=== PATIENT | female | born 1980 | race Caucasian/White ===

== ENCOUNTER → 2017-09-27 14:18 | Outpatient (REF) | payer OTHER, SELFPAY ==
[2017-09-27 14:58] LABS: Basophils % 0.2 % (0.1-2.0); Eosinophils # 0.1 K/mm3 (0.0-0.4); Eosinophils % 1.6 % (0.1-12.0); Hematocrit 43.4 % (37.0-47.0); Hemoglobin 14.9 g/dL (12.2-16.2); Lymphocytes # 1.5 K/mm3 (0.7-4.5); Lymphocytes % 21.3 K/mm3 (10-50); Mean Corpuscular HGB Conc 34.4 g/dL (31.8-35.4); Mean Corpuscular Hemoglobin 30.8 pg (27.0-31.2); Mean Corpuscular Volume 89.6 fl (81-99); Mean Platelet Volume 9.3 fl (7.4-10.4); Monocytes # 0.4 K/mm3 (0.1-1.0); Monocytes % 6.1 % (1.7-9.3); Neutrophils # 4.9 K/mm3 (1.8-7.8); Neutrophils % 70.9 % (37.0-80.0); Platelet Count 201 K/mm3 (142-424); Red Blood Count 4.84 M/mm3 (4.20-5.40); Red Cell Distribution Width 12.3 % (11.5-17.5); White Blood Count 6.9 K/mm3 (4.8-10.8)
[2017-09-27 16:05] LABS: Alanine Aminotransferase 33 U/L (12-78); Albumin Level 4.3 gm/dL (3.4-5.0); Albumin/Globulin Ratio 1.3 (1.1-1.8); Alkaline Phosphatase 77 U/L (46-116); Anion Gap 13.1 mEq/L (5-15); Aspartate Amino Transferase 30 U/L (15-37); Bilirubin,Total 0.6 mg/dL (0.2-1.0); Blood Urea Nitrogen 16 mg/dL (7-18); Calcium 9.1 mg/dL (8.5-10.1); Carbon Dioxide 26 mmol/L (21.0-32.0); Chloride 106 mmol/L (98-107); Creatinine,Serum 1.16 mg/dL (0.55-1.02); Estimated Glomerular Filt Rate 53 ml/min (>60); GFR (African American) 64 ML/MIN (>60); Globulin 3.3 gm/dl (1.3-3.2); Glucose 87 mg/dL (74-106); Potassium 4.1 mmoL/L (3.5-5.1); Sodium 141 mmol/L (136-145); Total Protein,Serum 7.6 gm/dL (6.4-8.2)
== END ==
LOC: LAB 14:18
PROVIDERS: Visit Provider Nurse Practitioner Family
DX: T14.8XXA Other injury of unspecified body region, initial encounter (principal); W57.XXXA Bitten or stung by nonvenomous insect and other nonvenomous arthropods, initial encounter
CPT/HCPCS: 80053; 85025; 86618

== ENCOUNTER → 2017-10-02 12:52 | Outpatient (CLI) | payer OTHER, SELFPAY ==
--- NOTE | 2017-10-02 12:55 | CA_ITS ---
PROCEDURE: 2-D M-mode and color Doppler study INDICATIONS FOR THE TEST: Chest pain COPD Heart Murmur Tobacco Smoking Palpitations Fatigue+ Syncope+ Edema Hypertension Diabetes Mellitus Rheumatic Fever SOB SEAY+Obesity Hyperlipidemia Family History HD+ Additional History near syncope, migraines PATIENT INFORMATION HEIGHT: 69 WEIGHT: 179 GENDER: Female B/P: 122/78 2-D/M-MODE INTERPRETATION: 2-D MEASUREMENTS OBSERVED VALUES IN CMS Right Ventricular Dimension (RVDd) 2.0 Interventricular Septum (Thickness)(IVsd) 0.9 Left Ventricular Internal Dimensions(LVIDd) 4.7 Left Ventricular Posterior Wall (Thickness)(LVPWd) 0.8 Aortic Root 2.6 Aortic Cusp Separation 2.1 Left Atrial Dimensions (LAD) 3.8 2D 1. Technically difficult study because of the equipment, image quality is very poorly valvular structures as well as endocardial subsequent poorly visualized. 2. Left atrium is normal size, left ventricle is normal size, there is no concentric left ventricular hypertrophy, visually estimated ejection fraction 55% with no obvious regional wall motion abnormality, endocardial surface of poorly visualized. 3. The right atrium and right ventricle are grossly normal size and function. 4. The aortic valve is poorly visualized. 5. The mitral and tricuspid valvular grossly normal. 6. No significant pericardial effusion noted. DOPPLER INTERROGATION: Doppler interrogation of the aortic, mitral and tricuspid valve reveals presence of mild mitral and tricuspid regurgitation, tricuspid and jet velocity insufficient for calculation of the right ventricular systolic pressure, diastolic parameters are within normal range. CONCLUSION: 1. Technically difficult study as described above 2. Normal left ventricular size, preserved left ventricular systolic function, visually estimated ejection fraction 55% with no obvious regional wall motion abnormality. Diastolic parameters are within normal range. 3. Mild mitral and tricuspid regurgitation 4. No significant pericardial effusion noted
== END ==
PROVIDERS: Family Provider Family Medicine; PCP Physician Assistant; Visit Provider Physician Assistant
DX: G43.009 Migraine without aura, not intractable, without status migrainosus (principal); T67.1XXA Heat syncope, initial encounter
CPT/HCPCS: 93306

== ENCOUNTER → 2017-10-22 14:33 | Outpatient (REF) | payer OTHER, SELFPAY ==
[2017-10-22 17:46] LABS: Basophils % 0.3 % (0.1-2.0); Eosinophils # 0.1 K/mm3 (0.0-0.4); Eosinophils % 1.3 % (0.1-12.0); Hematocrit 44.8 % (37.0-47.0); Hemoglobin 14.8 g/dL (12.2-16.2); Lymphocytes # 1.5 K/mm3 (0.7-4.5); Lymphocytes % 22.6 K/mm3 (10-50); Mean Corpuscular HGB Conc 33.1 g/dL (31.8-35.4); Mean Corpuscular Hemoglobin 29.4 pg (27.0-31.2); Mean Corpuscular Volume 88.7 fl (81-99); Mean Platelet Volume 9.3 fl (7.4-10.4); Monocytes # 0.4 K/mm3 (0.1-1.0); Monocytes % 5.4 % (1.7-9.3); Neutrophils # 4.6 K/mm3 (1.8-7.8); Neutrophils % 70.4 % (37.0-80.0); Platelet Count 215 K/mm3 (142-424); Red Blood Count 5.05 M/mm3 (4.20-5.40); Red Cell Distribution Width 12.4 % (11.5-17.5); White Blood Count 6.5 K/mm3 (4.8-10.8)
[2017-10-22 18:38] LABS: Erythrocyte Sedimentation Rate 14 mm/hr (0-20)
[2017-10-22 21:10] LABS: Alanine Aminotransferase 34 U/L (12-78); Albumin Level 4.4 gm/dL (3.4-5.0); Albumin/Globulin Ratio 1.4 (1.1-1.8); Alkaline Phosphatase 86 U/L (46-116); Anion Gap 12.9 mEq/L (5-15); Aspartate Amino Transferase 22 U/L (15-37); Bilirubin,Total 0.4 mg/dL (0.2-1.0); Blood Urea Nitrogen 13 mg/dL (7-18); Calcium 9.2 mg/dL (8.5-10.1); Carbon Dioxide 28 mmol/L (21.0-32.0); Chloride 104 mmol/L (98-107); Chol/HDL Ratio 4.2 (1-3.5); Cholesterol 146 mg/dL (140-200); Creatinine,Serum 0.94 mg/dL (0.55-1.02); Estimated Glomerular Filt Rate 68 ml/min (>60); GFR (African American) 82 ML/MIN (>60); Globulin 3.1 gm/dl (1.3-3.2); Glucose 71 mg/dL (74-106); HDL Cholesterol 35 mg/dL (29-89); LDL Cholesterol 84 mg/dL (0-130); Potassium 3.9 mmoL/L (3.5-5.1); Sodium 141 mmol/L (136-145); T4 (Thyroxine) 10.1 ug/dl (4.7-13.3); Total Protein,Serum 7.5 gm/dL (6.4-8.2); Triglycerides 137 mg/dL (30-200); VLDL Cholesterol 27 mg/dL (0-40)
[2017-10-22 21:19] LABS: C-Reactive Protein < 0.2 mg/L (0.0-0.9)
[2017-10-24 12:16] LABS: Anti-Jo-1 <0.2 AI (0.0-0.9); Anti-Smith Antibody <0.2 AI (0.0-0.9); Antichromatin Antibodies <0.2 AI (0.0-0.9); Antiscleroderma-70 Antibodies <0.2 AI (0.0-0.9); RNP Antibodies 0.2 AI (0.0-0.9); Sjogren's Anti-SS-A <0.2 AI (0.0-0.9); Sjogren's Anti-SS-B <0.2 AI (0.0-0.9)
[2017-10-24 14:26] LABS: Anti-DNA (DS) Ab Qn 1 IU/mL (0-9); RA Latex Turbid. <10.0 IU/mL (0.0-13.9)
[2017-10-24 14:27] LABS: Anti-Centromere B Antibodies <0.2 AI (0.0-0.9)
[2017-10-26 18:32] LABS: Rocky Mtn Spotted Fever, IgM 0.61 index (0.00-0.89)
== END ==
LOC: LAB 14:33
PROVIDERS: Visit Provider Physician Assistant
DX: M25.50 Pain in unspecified joint (principal)
CPT/HCPCS: 80053; 80061; 84436; 84443; 85025; 85651; 86038; 86140; 86431; 86609; 86617

== ENCOUNTER → 2017-10-24 08:04 | Outpatient (CLI) | payer OTHER, SELFPAY | PROVIDERS: Family Provider Family Medicine; PCP Physician Assistant; Visit Provider Internal Medicine | DX: R07.9 Chest pain, unspecified (principal); K21.9 Gastro-esophageal reflux disease without esophagitis; R68.89 Other general symptoms and signs; G43.909 Migraine, unspecified, not intractable, without status migrainosus | CPT/HCPCS: 93017 ==

== ENCOUNTER 2017-11-07 10:57 | Outpatient (RCR) | payer OTHER, SELFPAY | END 2017-11-07 10:58 | disposition home or self-care (01) | LOC: PT 10:57 | PROVIDERS: Family Provider Family Medicine; PCP Physician Assistant; Visit Provider Orthopaedic Surgery | DX: S83.005A Unspecified dislocation of left patella, initial encounter (principal) ==

== ENCOUNTER → 2017-11-11 14:03 | Outpatient (CLI) | payer OTHER, SELFPAY ==
--- NOTE | 2017-11-11 14:05 | MR_ITS ---
MR knee LT wo con HISTORY: Knee pain and swelling, pain when bending, dislocated patella ITS.REASON: Dislocation of Lt knee ORDERING PHYSICIAN: Gomez Foy MD PATIENT AGE: 37 years Comparison: None TECHNIQUE: Standard multiplanar multiecho sequences are performed without contrast. FINDINGS: The cruciate ligaments, collateral ligaments, patellar tendon, and quadriceps tendon are in fact. No meniscal tear. There is lateral subluxation of the patella by approximately 12 mm. The medial patellofemoral ligament is torn with edema in the region of the medial patellofemoral ligament. There is a moderate sized knee joint effusion. Edema is also present in the prepatellar region. There is mild bone marrow edema of the lateral aspect of the patella and the lateral aspect of the lateral femoral condyle consistent with bone bruise from the lateral patellar dislocation. Trochlear groove is shallow. The ventricular depth is 3 mm. There is trochlear facet asymmetry with the ratio of the medial trochlear facet to the lateral trochlear facet with of 28%. The lateral trochlear inclination is shallow at 4 degrees. 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 Lateral subluxation of the patella with tear of the medial patellofemoral ligament/medial retinaculum with associated knee joint effusion and bone bruise of the lateral femoral condyle and the medial aspect of the patella. 2. Trochlear dysplasia as described above
== END ==
PROVIDERS: Family Provider Family Medicine; PCP Physician Assistant; Visit Provider Orthopaedic Surgery
DX: S83.005A Unspecified dislocation of left patella, initial encounter (principal)
CPT/HCPCS: 73721

== ENCOUNTER → 2018-02-07 09:27 | Outpatient (CLI) | payer OTHER, SELFPAY ==
--- NOTE | 2018-02-07 09:29 | XR_ITS ---
XR foot wt bearing LT 3V HISTORY: ITS.REASON: pain ORDERING PHYSICIAN: Tiff Painting DPM PATIENT AGE: 37 years COMPARISON: None FINDINGS: No fracture or dislocation. No lytic or blastic change. There is normal mineralization.. The joint spaces are well-preserved. No significant degenerative/arthritic changes. No erosive changes evident. IMPRESSION: Negative, no acute finding
--- NOTE | 2018-02-07 09:29 | XR_ITS ---
XR ankle wt bearing LT min 3V HISTORY: ITS.REASON: pain ORDERING PHYSICIAN: Tiff Painting DPM PATIENT AGE: 37 years Comparison: None FINDINGS: No fracture or dislocation. No lytic or blastic change. There is normal mineralization.. The joint spaces are well-preserved. No significant degenerative/arthritic changes. No erosive changes evident. There is mild soft tissue swelling laterally. The talar dome has an unremarkable appearance IMPRESSION: Mild soft tissue swelling laterally otherwise negative
--- NOTE | 2018-02-07 09:29 | XR_ITS ---
XR ankle wt bearing RT min 3V HISTORY: ITS.REASON: pain ORDERING PHYSICIAN: Tiff Painting DPM PATIENT AGE: 37 years Comparison: None FINDINGS: No fracture or dislocation. No lytic or blastic change. There is normal mineralization.. The joint spaces are well-preserved. No significant degenerative/arthritic changes. No erosive changes evident. IMPRESSION: Negative ankle, no acute finding
--- NOTE | 2018-02-07 09:29 | XR_ITS ---
XR foot wt bearing RT 3V HISTORY: ITS.REASON: pain ORDERING PHYSICIAN: Tiff Painting DPM PATIENT AGE: 37 years COMPARISON: None FINDINGS: No fracture or dislocation. No lytic or blastic change. There is normal mineralization.. The joint spaces are well-preserved. No significant degenerative/arthritic changes. No erosive changes evident. There is a small calcaneal spur IMPRESSION: Negative, no acute finding
== END ==
PROVIDERS: PCP Physician Assistant; Visit Provider Podiatrist
DX: M25.579 Pain in unspecified ankle and joints of unspecified foot (principal)
CPT/HCPCS: 73610; 73630

== ENCOUNTER → 2018-02-11 08:13 | Outpatient (CLI) | payer OTHER, SELFPAY ==
[2018-02-11 08:40] LABS: Basophils % 0.3 % (0.1-2.0); Eosinophils # 0.1 K/mm3 (0.0-0.4); Eosinophils % 1.8 % (0.1-12.0); Hematocrit 42.2 % (37.0-47.0); Hemoglobin 14.5 g/dL (12.2-16.2); Lymphocytes # 1.3 K/mm3 (0.7-4.5); Lymphocytes % 21.2 K/mm3 (10-50); Mean Corpuscular HGB Conc 34.4 g/dL (31.8-35.4); Mean Corpuscular Hemoglobin 30.6 pg (27.0-31.2); Mean Corpuscular Volume 88.9 fl (81-99); Mean Platelet Volume 8.5 fl (7.4-10.4); Monocytes # 0.3 K/mm3 (0.1-1.0); Monocytes % 4.8 % (1.7-9.3); Neutrophils # 4.4 K/mm3 (1.8-7.8); Neutrophils % 71.8 % (37.0-80.0); Platelet Count 215 K/mm3 (142-424); Red Blood Count 4.74 M/mm3 (4.20-5.40); Red Cell Distribution Width 12.4 % (11.5-17.5); White Blood Count 6.1 K/mm3 (4.8-10.8)
[2018-02-11 10:08] LABS: Erythrocyte Sedimentation Rate 11 mm/hr (0-20)
[2018-02-11 11:49] LABS: C-Reactive Protein < 0.2 mg/L (0.0-0.9)
== END ==
PROVIDERS: Family Provider Family Medicine; PCP Physician Assistant; Visit Provider Orthopaedic Surgery
DX: B99.9 Unspecified infectious disease (principal); M25.572 Pain in left ankle and joints of left foot; M72.2 Plantar fascial fibromatosis; M19.072 Primary osteoarthritis, left ankle and foot
CPT/HCPCS: 36415; 85025; 85651; 86140

== ENCOUNTER → 2018-02-21 10:04 | Outpatient (CLI) | payer OTHER, SELFPAY ==
--- NOTE | 2018-02-21 10:06 | MR_ITS ---
MR ankle LT wo/w con HISTORY: Posterior left ankle pain, pain when walking ITS.REASON: left ankle pain/ rec by Dr Ellis ORDERING PHYSICIAN: Arie Bales MD PATIENT AGE: 37 years Comparison: 12/27/2017 TECHNIQUE: Standard multiplanar multiecho sequences are performed without and with gadolinium enhancement. The patient did experience hives following gadolinium enhancement. The patient was taken to the radiology department and observed. Antihistamine was not given as the patient was driving herself home. The hives resolved without treatment and the patient left the radiology department in stable condition. FINDINGS: The anterior tibiofibular ligament is not identified consistent with tear. The posterior tibiofibular ligament is intact. The anterior talofibular ligament is identified but is thin with a small amount of fluid in this region. The posterior talofibular ligament is also thin. The fibers of the deltoid ligament are thin but appear intact. These are not well demarcated which may be due to technical factors. Osteoarthritic changes are present involving the anterior talocalcaneal joint with bone marrow edema of the talus and calcaneus at this region which does demonstrate contrast enhancement. The tendons about the ankle appear intact. No acute fracture is evident. The talar dominant has an unremarkable appearance IMPRESSION: 1. 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 2. Suspect tear of the anterior tibiofibular ligament. 3. Sprain versus partial tear of the ATFL and PTFL
== END ==
PROVIDERS: PCP Physician Assistant; Visit Provider Orthopaedic Surgery
DX: M25.572 Pain in left ankle and joints of left foot (principal)
CPT/HCPCS: 73223; A9576

== ENCOUNTER → 2018-03-17 09:20 | Outpatient (CLI) | payer OTHER, SELFPAY ==
[2018-03-17 09:52] LABS: Basophils % 0.4 % (0.1-2.0); Eosinophils # 0.1 K/mm3 (0.0-0.4); Eosinophils % 1.4 % (0.1-12.0); Hematocrit 41.2 % (37.0-47.0); Hemoglobin 14.1 g/dL (12.2-16.2); Lymphocytes # 1.4 K/mm3 (0.7-4.5); Lymphocytes % 26.9 K/mm3 (10-50); Mean Corpuscular HGB Conc 34.3 g/dL (31.8-35.4); Mean Corpuscular Hemoglobin 30.5 pg (27.0-31.2); Mean Corpuscular Volume 88.9 fl (81-99); Mean Platelet Volume 8.6 fl (7.4-10.4); Monocytes # 0.3 K/mm3 (0.1-1.0); Monocytes % 4.8 % (1.7-9.3); Neutrophils # 3.5 K/mm3 (1.8-7.8); Neutrophils % 66.5 % (37.0-80.0); Platelet Count 201 K/mm3 (142-424); Red Blood Count 4.63 M/mm3 (4.20-5.40); Red Cell Distribution Width 12.5 % (11.5-17.5); White Blood Count 5.3 K/mm3 (4.8-10.8)
[2018-03-17 10:41] LABS: Alanine Aminotransferase 37 U/L (12-78); Albumin/Globulin Ratio 1.3 (1.1-1.8); Alkaline Phosphatase 82 U/L (46-116); Anion Gap 9.2 mEq/L (5-15); Aspartate Amino Transferase 17 U/L (15-37); Bilirubin,Total 0.8 mg/dL (0.2-1.0); Blood Urea Nitrogen 11 mg/dL (7-18); Calcium 8.7 mg/dL (8.5-10.1); Carbon Dioxide 29 mmol/L (21.0-32.0); Chloride 104 mmol/L (98-107); Chol/HDL Ratio 3.9 (1-3.5); Cholesterol 153 mg/dL (140-200); Creatinine,Serum 0.66 mg/dL (0.55-1.02); Estimated Glomerular Filt Rate 102 ml/min (>60); GFR (African American) 123 ML/MIN (>60); Globulin 3.1 gm/dl (1.3-3.2); Glucose 84 mg/dL (74-106); HDL Cholesterol 39 mg/dL (29-89); LDL Cholesterol 99 mg/dL (0-130); Potassium 4.2 mmoL/L (3.5-5.1); Sodium 138 mmol/L (136-145); Thyroid Stimulating Hormone 1.37 uIU/ml (0.358-3.740); Total Protein,Serum 7.1 gm/dL (6.4-8.2); Triglycerides 75 mg/dL (30-200); VLDL Cholesterol 15 mg/dL (0-40)
[2018-03-18 15:56] LABS: Vitamin B12 380 pg/mL (232-1245); Vitamin D 25 Hydroxy 14.7 ng/mL (30.0-100.0)
== END ==
PROVIDERS: PCP Nurse Practitioner Family; Visit Provider Nurse Practitioner Family
DX: Z00.00 Encounter for general adult medical examination without abnormal findings (principal); R53.83 Other fatigue
CPT/HCPCS: 36415; 80053; 80061; 82607; 82652; 84443; 85025

== ENCOUNTER 2018-03-19 08:00 | Outpatient (RCR) | payer OTHER, SELFPAY ==
--- NOTE | 2018-01-31 10:01 | HMH.RHREAS ---
Rehab Reassessment Rehab OP Re-assessment Start: 01/31/18 07:57 Freq: Status: Active Protocol: Document 01/31/18 07:59 ANIYAH (Rec: 01/31/18 08:29 ANIYAH [id number]) Electronically Signed By Alonso Dickerson, PT 01/31/18 07:59 Rehab Re-assessment Subjective Subjective PT REPORTS 2-5/10 L KNEE PAIN W/ACTIVITY ON VAS, AND FEELS 70-75% BETTER SINCE I EVAL Objective Objective Notes AROM: L KNEE FLX 0-122 TTP: L KNEE MEDIAL JT LINE 2/4 MMT: L KNEE FLX 4+/5, L KNEE EXT 4+/5, L HIP FLX 4-4+/5, L HIP IR AND ER 4/5 CIRCUM. L KNEE 36CM AT JT LINE Assessment Progress Assessment Progressing as Expected Assessment Notes PT W/IMPROVED ROM, STRENTGH, TTP, SWELLING Patient goals met STG'S 11/30 LTG'S Goals Not Met LTG'S 11/04 Plan Plan Pt to cont. w/skilled PT to make further improvements in strength, TTP, and gait to allow for optimal function Frequency of Therapy 1-2x/wk Duration of therapy 3-4wks Time and Billing Re-Eval Time 15 Re-Eval Billing Units 1 PHYSICIAN CERTIFICATION: I certify the specified therapy services for Capri Hickman are required, authorized, and reviewed every 30 days.
--- NOTE | 2018-03-12 08:28 | HMH.RHREAS ---
Rehab Reassessment Rehab OP Re-assessment Start: 01/31/18 07:57 Freq: Status: Active Protocol: Document 03/12/18 08:24 JIAHAO (Rec: 03/12/18 08:27 JIAHAO [id number]) Electronically Signed By Alonso Dickerson, PT 03/12/18 08:24 Rehab Re-assessment Subjective Subjective PT REPORT 4-5/10 L KNEE PAIN AND 8/10 L ANKLE (MEDIAL) PAIN ON VAS Objective Objective Notes AROM: L KNEE FLX 0-125 TTP: L KNEE MEDIAL JT LINE 2/4 MMT: L KNEE FLX 4+/5, L KNEE EXT 4+/5, L HIP FLX 4-4+/5, L HIP IR AND ER 4/5 CIRCUM. L KNEE 37CM AT JT LINE AROM: L ANKLE DF 0-8, PF 0-35, EVR 0-10, INV 0-20 (PAIN W/ INVR AND EVR) MMT L ANKLE DF 4-/5, PF 4-/5, INV 4-/5, EVR 4-/5 TTP: L ANKLE MEDIAL ASPECT/ DELTOID LIG AREA 3/4 Assessment Progress Assessment Slower Than Expected Assessment Notes L KNEE CLOSE TO WFL, HOWEVER, L ANKLE STILL HAS SIGNIFICANT DEFICITS-PT TO SEE ORTHO 03/25 Patient goals met STG'S 11/30 LTG'S 10/04 Goals Not Met LTG'S 11/04 Plan Plan Pt to cont. w/skilled PT to make further improvements in strength, TTP, and gait to allow for optimal function Frequency of Therapy 2-3/WK Duration of therapy 3-4 WKS Time and Billing Re-Eval Time 15 Re-Eval Billing Units 1 PHYSICIAN CERTIFICATION: I certify the specified therapy services for Capri Hickman are required, authorized, and reviewed every 30 days.
== END 2018-03-19 08:01 | disposition home or self-care (01) ==
LOC: PT 08:00
PROVIDERS: Family Provider Family Medicine; PCP Physician Assistant; Visit Provider Orthopaedic Surgery
DX: S86.812A Strain of other muscle(s) and tendon(s) at lower leg level, left leg, initial encounter (principal); M72.2 Plantar fascial fibromatosis
CPT/HCPCS: 97010; 97014; 97033; 97035; 97110; 97140; 97163; 97164; 97760; G0283

== ENCOUNTER → 2018-04-11 08:13 | Outpatient (CLI) | payer OTHER, SELFPAY ==
--- NOTE | 2018-04-11 08:14 | CT_ITS ---
CT ankle LT wo con INDICATION: Left ankle pain following injury ITS.REASON: pain ORDERING PHYSICIAN: Tiff Painting DPM PATIENT AGE: 37 years COMPARISON: 02/21/2018 TECHNIQUE: Axial images are obtained without contrast. Sagittal and coronal reformatted images are reviewed as well. All CT scans at the facility use one or more dose reduction, viz: automated exposure control, ma/kV adjustment per patient size (including targeted exams where dose is matched to indication, i.e. head), or iterative reconstruction technique. FINDINGS: No fracture or dislocation. There is normal alignment. The talar dome has an unremarkable appearance.. There is some minimal cortical irregularity involving the middle talar articular surface and adjoining calcaneus/sustentaculum talus which would correspond to the area of sclerosis noted on MRI of 02/21/2018. No abnormal fluid collections. No evidence of stress fracture. IMPRESSION: 1. No acute fracture. 2. Mild sclerosis of the middle subtalar joint suggesting mild osteoarthritic changes. Previously this was called to the anterior subtalar joint on the MRI of 02/21/2018 but is actually the middle subtalar articulation.
== END ==
PROVIDERS: PCP Podiatrist; Visit Provider Podiatrist
DX: D75.89 Other specified diseases of blood and blood-forming organs (principal); M25.572 Pain in left ankle and joints of left foot; S93.492A Sprain of other ligament of left ankle, initial encounter
CPT/HCPCS: 73700

== ENCOUNTER → 2018-06-05 09:50 | Outpatient (CLI) | payer OTHER, SELFPAY ==
--- NOTE | 2018-06-05 09:51 | XR_ITS ---
XR foot wt bearing RT 3V HISTORY: ITS.REASON: pain ORDERING PHYSICIAN: Tiff Painting DPM PATIENT AGE: 38 years COMPARISON: None FINDINGS: No fracture or dislocation. No lytic or blastic change. There is normal mineralization.. The joint spaces are well-preserved. No significant degenerative/arthritic changes. No erosive changes evident. IMPRESSION: Negative, no acute finding
--- NOTE | 2018-06-05 09:51 | XR_ITS ---
XR foot wt bearing LT 3V HISTORY: ITS.REASON: pain ORDERING PHYSICIAN: Tiff Painting DPM PATIENT AGE: 38 years COMPARISON: None FINDINGS: No fracture or dislocation. No lytic or blastic change. There is normal mineralization.. The joint spaces are well-preserved. No significant degenerative/arthritic changes. No erosive changes evident. IMPRESSION: Negative, no acute finding
== END ==
PROVIDERS: PCP Nurse Practitioner Family; Visit Provider Podiatrist
DX: M79.671 Pain in right foot (principal)
CPT/HCPCS: 73630

== ENCOUNTER → 2018-08-14 09:53 | Outpatient (CLI) | payer OTHER, SELFPAY ==
[2018-08-14 10:15] LABS: Basophils % 0.2 % (0.1-2.0); Eosinophils # 0.1 K/mm3 (0.0-0.4); Eosinophils % 1.1 % (0.1-12.0); Hematocrit 42.8 % (37.0-47.0); Hemoglobin 14.4 g/dL (12.2-16.2); Lymphocytes # 1.5 K/mm3 (0.7-4.5); Mean Corpuscular HGB Conc 33.7 g/dL (31.8-35.4); Mean Corpuscular Hemoglobin 30.5 pg (27.0-31.2); Mean Corpuscular Volume 90.6 fl (81-99); Mean Platelet Volume 8.6 fl (7.4-10.4); Monocytes # 0.3 K/mm3 (0.1-1.0); Monocytes % 5.6 % (1.7-9.3); Neutrophils % 68.1 % (37.0-80.0); Platelet Count 213 K/mm3 (142-424); Red Blood Count 4.72 M/mm3 (4.20-5.40); Red Cell Distribution Width 12.7 % (11.5-17.5); White Blood Count 5.9 K/mm3 (4.8-10.8)
[2018-08-14 10:22] LABS: Activated Partial Thrombo Time 25.8 seconds (23.6-34.0); INR 0.99 (0.9-1.1); Prothrombin Time 10.2 seconds (9.4-11.8)
[2018-08-14 11:24] LABS: Alanine Aminotransferase 64 U/L (12-78); Albumin Level 4.3 gm/dL (3.4-5.0); Albumin/Globulin Ratio 1.4 (1.1-1.8); Alkaline Phosphatase 109 U/L (46-116); Anion Gap 12.2 mEq/L (5-15); Aspartate Amino Transferase 36 U/L (15-37); Bilirubin,Total 0.6 mg/dL (0.2-1.0); Blood Urea Nitrogen 8 mg/dL (7-18); Calcium 9.2 mg/dL (8.5-10.1); Carbon Dioxide 29 mmol/L (21.0-32.0); Chloride 105 mmol/L (98-107); Creatinine,Serum 0.64 mg/dL (0.55-1.02); Estimated Glomerular Filt Rate 105 ml/min (>60); GFR (African American) 127 ML/MIN (>60); Glucose 87 mg/dL (74-106); Potassium 4.2 mmoL/L (3.5-5.1); Sodium 142 mmol/L (136-145); Total Protein,Serum 7.3 gm/dL (6.4-8.2)
[2018-08-15 08:54] LABS: Vitamin D 25 Hydroxy 9.7 ng/mL (30.0-100.0)
== END ==
PROVIDERS: Visit Provider Nurse Practitioner Family
DX: Z01.818 Encounter for other preprocedural examination (principal); S93.492S Sprain of other ligament of left ankle, sequela; S93.422D Sprain of deltoid ligament of left ankle, subsequent encounter; G57.62 Lesion of plantar nerve, left lower limb; M25.372 Other instability, left ankle
CPT/HCPCS: 36415; 80053; 82652; 85025; 85610; 85730

== ENCOUNTER → 2018-08-26 10:07 | Outpatient (CLI) | payer OTHER, SELFPAY ==
--- NOTE | 2018-08-26 10:12 | XR_ITS ---
XR chest 2V HISTORY: ITS.REASON: PRE-OP ORDERING PHYSICIAN: Tiff Painting DPM PATIENT AGE: 38 years COMPARISON: PA and lateral chest 02/22/2012 FINDINGS: The cardiomediastinal silhouette and pulmonary vascularity are within normal limits. The lungs are clear without infiltrates, suspicious nodules, or pleural effusions. No acute bony abnormalities. There are small calcified hilar nodes bilaterally. IMPRESSION: Negative chest, no acute finding
== END ==
PROVIDERS: PCP Nurse Practitioner Family; Visit Provider Podiatrist
DX: Z01.818 Encounter for other preprocedural examination (principal); M25.572 Pain in left ankle and joints of left foot; M25.372 Other instability, left ankle; M19.172 Post-traumatic osteoarthritis, left ankle and foot; G57.62 Lesion of plantar nerve, left lower limb
CPT/HCPCS: 71046

== ENCOUNTER → 2018-09-09 07:55 | Outpatient (CLI) | payer OTHER, SELFPAY ==
--- NOTE | 2018-09-09 07:59 | XR_ITS ---
XR foot wt bearing LT 3V HISTORY: Follow-up ITS.REASON: post-op ORDERING PHYSICIAN: Tiff Painting DPM PATIENT AGE: 38 years COMPARISON: Talocalcaneal fusion 08/27/2018 FINDINGS: Study is obtained through a posterior splint. There remains good alignment without evidence of complication status post talocalcaneal arthrodesis and distal tib-fib fixation. IMPRESSION: No change, good alignment
--- NOTE | 2018-09-09 07:59 | XR_ITS ---
XR calcaneus LT min 2V CLINICAL INDICATION: Follow-up fusion/arthrodesis ITS.REASON: post-op ORDERING PHYSICIAN: Tiff Painting DPM PATIENT AGE: 38 years Comparison: 08/27/2018 FINDINGS: Status post arthrodesis of the posterior talocalcaneal joint with 2 screws present previously described unchanged with good alignment posterior splint is present. IMPRESSION: Status post posterior talocalcaneal arthrodesis with good alignment unchanged
== END ==
PROVIDERS: PCP Internal Medicine Adolescent Medicine; Visit Provider Podiatrist
DX: Z98.890 Other specified postprocedural states (principal)
CPT/HCPCS: 73630; 73650; 87070; 87205

== ENCOUNTER → 2018-09-09 18:36 | Outpatient (CLI) | payer OTHER, SELFPAY | PROVIDERS: Visit Provider Podiatrist | DX: Z98.890 Other specified postprocedural states (principal) | CPT/HCPCS: 87070; 87205 ==

== ENCOUNTER → 2018-10-06 14:01 | Outpatient (CLI) | payer OTHER, SELFPAY ==
--- NOTE | 2018-10-06 14:05 | XR_ITS ---
XR foot wt bearing LT 3V HISTORY: Follow-up surgery ITS.REASON: postop views ORDERING PHYSICIAN: Tiff Painting DPM PATIENT AGE: 38 years COMPARISON: 09/09/2018 FINDINGS: The splint has been removed. No change status post talocalcaneal arthrodesis. No change in the screws in the talus and calcaneus. There remains good alignment. IMPRESSION: Good alignment status post talocalcaneal arthrodesis
== END ==
PROVIDERS: PCP Internal Medicine Adolescent Medicine; Visit Provider Podiatrist
DX: Z98.890 Other specified postprocedural states (principal)
CPT/HCPCS: 73630

== ENCOUNTER 2018-11-24 14:30 | Outpatient (RCR) | payer OTHER, SELFPAY ==
--- NOTE | 2018-10-21 08:46 | HMH.PTOPEV ---
PT Outpatient Evaluation Rehab PT Outpatient Evaluation Start: 10/21/18 08:38 Freq: Status: Active Protocol: Document 10/21/18 08:39 ANIYAH (Rec: 10/21/18 08:46 ANIYAH [id number]) Electronically Signed By Alonso Dickerson, PT 10/21/18 08:39 Outpatient Therapy Subjective History Subjective History Pt presents s/p L ankle fusion sx. on 09/06/18. Pt reports sx . was a success, 'I wish I had done it earlier, I have no pain, and feels so much better '. Pt reports no L ankle pain or soreness, only a small area where sx. incision is healing slow, and stiffness and weakness in joint. Chief Complaint Stiff,Weakness Symptom Type Numbness,Tingling Symptoms Relieved By Rest/Positioning Symptoms Aggravated By Standing,Walking Prior Functional Limitations Standing,Walking Current Functional Limitations Housework,Standing,Walking, Stairs,Balance Symptom Description Intermittent Level of pain today (0-10) 0 Pain scale - at its best (0-10) 0 Pain scale - at its worst (0-10) 0 Ankle/Foot Eval Gait Observation General Gait Pattern Observation Antalgic Gait,Decrease Weight Bear (L) Assistive Device Ambulation Assistive Device Axillary Crutches Palpation Tenderness left Ankle/Foot Palpation Findings Muscle Guarding Ankle/Foot Palpation Overall Comment 0-1/4 global ROM Ankle/Foot Dorsiflexion w/Knee Extended 0-10 Active Range Motion (degrees) Ankle/Foot Plantar Flexion Active Range 0-5 of Motion (degrees) Ankle/Foot Eversion Active Range of 0-5 Motion (degrees) Ankle/Foot Inversion Active Range of 0-20 Motion (degrees) Ankle/Foot ROM Limitations Soft Tissue Tightness,Bony Restriction MMT Ankle Dorsiflexion Strength Grade 4 Good Ankle Plantarflexion Strength Grade 4- Good- Foot Eversion Strength Grade 4- Good- Foot Inversion Strength Grade 4- Good- Outpatient Therapy Assessment Impairments Problems/Impairmments Palpation Tenderness,Impaired Range of Motion,Impaired Strength,Impaired Gait Pattern ,Impaired Walking,Impaired Standing,Impaired Household Care,Impaired Stair Climbing, Subjective C/O Pain,Impaired Self Care/Self Management Prognosis Rehab Potential Good Clinical Impr
== END 2018-11-24 14:35 | disposition home or self-care (01) ==
LOC: PT 14:30
PROVIDERS: Visit Provider Podiatrist
DX: Z98.890 Other specified postprocedural states (principal); M79.672 Pain in left foot
CPT/HCPCS: 97010; 97014; 97110; 97163; G0283

== ENCOUNTER → 2018-12-02 07:38 | Outpatient (CLI) | payer OTHER, SELFPAY ==
--- NOTE | 2018-12-02 07:40 | MR_ITS ---
MR knee LT wo con HISTORY: Left knee pain, locking while walking ITS.REASON: evaluate for meniscus tear ORDERING PHYSICIAN: Arie Bales MD PATIENT AGE: 38 years Comparison: 11/11/2017 TECHNIQUE: Standard multiplanar multiecho sequences are performed without contrast. FINDINGS: Cruciate ligaments, collateral ligaments, patellar tendon, and quadriceps tendon appear intact. Lateral meniscus and the anterior horn of the medial meniscus has an unremarkable appearance. There is some deformity of the posterior aspect of the posterior horn of the medial meniscus along its medial margin with the appearance of part of that meniscus missing suggesting a meniscal tear or maceration. Previously noted lateral subluxation of the patella has improved. There does remain some discontinuity, thinning and irregularity of the medial aspect of the medial patellofemoral ligament consistent with tear of the medial patellofemoral ligament. There is a small knee joint effusion. There is bone marrow edema involving the medial aspect of the proximal tibia posteriorly suggesting a bone bruise. IMPRESSION: 1. Bone bruise of the proximal tibia medially 2. There is some deformity of the posterior aspect of the posterior horn of the medial meniscus along its medial margin with the appearance of part of that meniscus missing suggesting a meniscal tear or maceration. 3. 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
== END ==
PROVIDERS: PCP Nurse Practitioner Family; Visit Provider Orthopaedic Surgery
DX: M25.562 Pain in left knee (principal)
CPT/HCPCS: 73721

== ENCOUNTER → 2018-12-12 08:46 | Outpatient (CLI) | payer OTHER, SELFPAY ==
[2018-12-12 10:12] LABS: Basophils % 0.5 % (0.1-2.0); Eosinophils # 0.1 K/mm3 (0.0-0.4); Eosinophils % 1.1 % (0.1-12.0); Hematocrit 39.5 % (37.0-47.0); Hemoglobin 13.1 g/dL (12.2-16.2); Lymphocytes # 1.2 K/mm3 (0.7-4.5); Lymphocytes % 26.5 % (10-50); Mean Corpuscular HGB Conc 33.1 g/dL (31.8-35.4); Mean Corpuscular Hemoglobin 28.6 pg (27.0-31.2); Mean Corpuscular Volume 86.6 fl (81-99); Mean Platelet Volume 8.1 fl (7.4-10.4); Monocytes # 0.3 K/mm3 (0.1-1.0); Monocytes % 6.5 % (1.7-9.3); Neutrophils % 65.4 % (37.0-80.0); Platelet Count 231 K/mm3 (142-424); Red Blood Count 4.56 M/mm3 (4.20-5.40); Red Cell Distribution Width 12.2 % (11.5-17.5); White Blood Count 4.6 K/mm3 (4.8-10.8)
[2018-12-12 11:12] LABS: Anion Gap 10.1 mEq/L (5-15); Blood Urea Nitrogen 10 mg/dL (7-18); Calcium 8.9 mg/dL (8.5-10.1); Carbon Dioxide 28 mmol/L (21.0-32.0); Chloride 106 mmol/L (98-107); Estimated Glomerular Filt Rate 95 ml/min (>60); GFR (African American) 115 ML/MIN (>60); Glucose 86 mg/dL (74-106); HCG,Quantitative 0 mIU/mL; Potassium 4.1 mmoL/L (3.5-5.1); Sodium 140 mmol/L (136-145)
== END ==
PROVIDERS: Visit Provider Orthopaedic Surgery
DX: Z01.818 Encounter for other preprocedural examination (principal); S83.242D Other tear of medial meniscus, current injury, left knee, subsequent encounter
CPT/HCPCS: 36415; 80048; 84702; 85025

== ENCOUNTER 2019-02-12 08:30 | Outpatient (RCR) | payer OTHER, SELFPAY ==
--- NOTE | 2019-01-12 09:51 | HMH.PTOPEV ---
PT Outpatient Evaluation Rehab PT Outpatient Evaluation Start: 01/12/19 07:59 Freq: Status: Active Protocol: Document 01/12/19 08:19 ANIYAH (Rec: 01/12/19 09:51 ANIYAH [id number]) Electronically Signed By Alonso Dickerson, PT 01/12/19 08:19 Outpatient Therapy Subjective History Subjective History Pt presents s/p L knee scope w /subchondroplasty, MPFL tear on 12/19/18. Pt reports initial injury occurred during training session w/[employer] on 11/04/17. Pt reports L knee has shown progression in function since sx., however, still reports anterior L knee pain, weakness , and stiffness. Follow-up Chief Complaint Pain,Stiff,Weakness Symptom Type Ache,Dull Symptoms Relieved By Rest/Positioning,Ice Symptoms Aggravated By Standing,Walking Prior Functional Limitations Standing,Squatting,Walking, Stairs Current Functional Limitations Standing,Squatting,Walking, Stairs Symptom Description Constant but Variable Level of pain today (0-10) 3 Pain scale - at its best (0-10) 2 Pain scale - at its worst (0-10) 6 Hip/Knee Eval Gait Observation General Gait Pattern Observation Antalgic Gait Assistive Device Assistive Devices None / NA Palpation Tenderness left Knee Palpation Finding Tenderness Knee Palpation Overall Comment 1-2/4-anterior jt line MMT right Hip Flexion Strength Grade 5 Normal Hip Abduction Strength Grade 4 Good Hip Adduction Strength Grade 4 Good Hip Extension Strength Grade 4 Good Hip External Rotation Strength Grade 4 Good Hip Internal Rotation Strength Grade 5 Normal Knee Extension Strength Grade 5 Normal Knee Flexion Strength Grade 5 Normal left Hip Flexion Strength Grade 4 Good Hip Abduction Strength Grade 4- Good- Hip Adduction Strength Grade 4- Good- Hip Extension Strength Grade 4- Good- Hip External Rotation Strength Grade 4- Good- Hip Internal Rotation Strength Grade 4- Good- Knee Extension Strength Grade 4 Good Knee Flexion Strength Grade 4 Good ROM right Knee Flexion Active Range of Motion ( 0-135 degrees) left Knee Flexion Active Range of Motion ( 0-118 degrees) Knee ROM Limitations Soft Tissue Tightness Effusion joint effusion knee exam standard left Mid - Patellar Circumerential Measure ( 38.5 cm)
--- NOTE | 2019-02-10 08:21 | HMH.RHREAS ---
Rehab Reassessment Rehab OP Re-assessment Start: 02/10/19 08:03 Freq: Status: Active Protocol: Document 02/10/19 08:04 JIAHAO (Rec: 02/10/19 08:21 ANIYAH [id number]) Electronically Signed By Alonso Dickerson, PT 02/10/19 08:04 Rehab Re-assessment Subjective Subjective PT REPORTS 0-2/10 L KNEE PAIN ON VAS AND FEELS 75% BETTER OVERALL SINCE I EVAL Objective Objective Notes AROM: 2-135 L KNEE FLX, PROM 0 -140 MMT: L KNEE FLX 4+/5, KNEE EXT 5/5, L HIP FLX 5/5, L HIP ABD /ADD/EXT 4/5 TTP: L KNEE ANT JT LINE 1-2/4 EDEMA: L KNEE JT LINE 39CM Assessment Progress Assessment Progressing as Expected Assessment Notes PT W/IMPROVED STRENGTH, ROM, AND TTP Patient goals met STG'S 10/31 LTG'S 07/07 Goals Not Met STG'S 06/02, LTG'S 02/04 Plan Plan PT TO CONT. W/SKILLED P.T. TO MAKE FURTHER IMPROVEMENTS IN AROM, STRENGTH, AND TTP TO ALLOW FOR OPTIMAL FUNCTION Frequency of Therapy 2-3X/WK Duration of therapy 3-4WKS Time and Billing Re-Eval Time 15 Re-Eval Billing Units 1 PHYSICIAN CERTIFICATION: I certify the specified therapy services for Capri Hickman are required, authorized, and reviewed every 30 days.
== END 2019-02-12 08:35 | disposition home or self-care (01) ==
LOC: PT 08:30
PROVIDERS: Visit Provider Orthopaedic Surgery
DX: Z09 Encounter for follow-up examination after completed treatment for conditions other than malignant neoplasm (principal); S83.242D Other tear of medial meniscus, current injury, left knee, subsequent encounter
CPT/HCPCS: 97010; 97014; 97016; 97110; 97163; 97164; G0283

== ENCOUNTER 2020-01-22 13:26 | Emergency (ER) | payer OTHER, SELFPAY ==
[2020-01-22 13:49] VITALS: BP 114/80; PULSE 76; RESP 20; TEMP 36.8; O2SAT 99; BMI 26.6
--- NOTE | 2020-01-22 14:03 | HMH.EDUTC ---
[facility] [place] Disposition Clinical Impression: UTI (urinary tract infection) Qualifiers: Urinary tract infection type: site unspecified Hematuria presence: with hematuria Qualified Code(s): N39.0 - Urinary tract infection, site not specified Disposition: Home, Self-Care Condition on Discharge: Good Instructions: Urinary Tract Infection Additional Instructions: Drink plenty of fluids. Take tylenol or ibuprofen for pain or fever. Take the medications as directed. Follow up with your regular doctor. GO TO THE ER FOR ANY WORSENING SYMPTOMS The pyridium will make your urine turn orange, this is an expected side effect. It will stain your clothes if it comes into contact with them. Prescriptions: Sulfamethoxazole/Trimethoprim [Bactrim DS tablet] 1 each PO BID 7 Days #14 tab Transmission Status: Received by [facility] Phenazopyridine HCl [Pyridium 200mg Tablet] 200 pow PO TID #6 tab Transmission Status: Received by [facility] Referrals: Moncho Talley MD [Primary Care Provider] - Time of Disposition: 14:05 Medical Decision Making - Medical Records Medical records reviewed: No: I reviewed the patient's medical records. - Nael Inquiry Pt receiving controlled substance: No Vital Signs: 01/22/20 13:49 01/22/20 14:14 Temperature 98.3 F 98.3 F Temperature Source Oral Pulse Rate 76 Pulse Rate [Right Brachial] 76 Respiratory Rate 20 20 Blood Pressure 114/80 Blood Pressure [Right Arm] 114/80 Blood Pressure Mean [Right Arm] 91 Blood Pressure Source [Right Arm] Automatic Cuff Blood Pressure Position [Right Arm] Sitting 02 Sat by Pulse Oximetry 99 Oxygen Delivery Method Room Air - Lab Data Lab results reviewed: Yes: I reviewed the patient's lab results. Lab Results 01/22/20 14:17: Urine Color Yellow, Urine Appearance Slightly cloudy, Urine pH 5.5, Ur Specific [place] 1.010, Urine Protein Negative, Urine Glucose (UA) Negative, Urine Ketones Negative, Urine Blood 4+, Urine Nitrate Negative, Urine Bilirubin Negative, Urine Urobilinogen 0.2, Ur Leukocyte Esterase Negative [facility] [place] HPI - General Stated complaint: kidney pain Time Seen by Provider: 01/22/20 13:50 Mode of Arrival: Ambulatory Source of Information: Patient Limitations: No Limitations Description of Symptoms (Recalled from Triage Doc. by RN): PATIENT C/O BILATERAL FLANK PAIN SINCE YESTERDAY. DENIES ANY OTHER SYMPTOMS HEENT Symptoms (Recalled from RN notes): No Resp Symptoms (Recalled from RN notes): No Skin Symptoms (Recalled from RN notes): No MS Symptoms (Recalled from RN notes): No Functional Status (Recalled from RN notes): WNL - History of Present Illness Provider Complaint: She c/o low back pain and bilateral flank pain since yesterday. She has been voiding more than normal, but she started drinking lots of water as soon as her back started hurting. She denies any dysuria. - Related Data Previous Rx's Medication Instructions Recorded Cefdinir [Omnicef 300mg Capsule] 300 mg PO BID #20 cap 07/23/19 Fluticasone Propionate [Flonase 1 spr NS DAILY #1 bottle 07/23/19 50mcg nasal spray 16gm] methylPREDNISolone [Medrol 4mg 4 mg PO DIRECTED #21 tab 07/23/19 tab] Phenazopyridine HCl [Pyridium 200 pow PO TID #6 tab 01/22/20 200mg Tablet] Sulfamethoxazole/Trimethoprim 1 each PO BID 7 Days #14 tab 01/22/20 [Bactrim DS tablet] Allergies Allergy/AdvReac Type Severity Reaction Status Date / Time Penicillins [PENICILLINS] Allergy Unknown Hives Verified 06/29/19 08:09 Iodinated Contrast Media AdvReac Verified 06/29/19 08:09 [Iodinated Contrast Media - Oral and] - Worker's Comp Is this a Worker's Comp case?: No [facility] History - Hepatitis A Screen Drug use history?: No High risk sexual behaviors?: No History of sexually transmitted infection?: No Currently employed?: No Childcare worker?: No Do you have indoor plumbing?: Yes Do you have electricity?: Yes Attestat
[2020-01-22 14:14] VITALS: BP 114/80; PULSE 76; RESP 20; TEMP 36.8; O2SAT 99
[2020-01-22 14:18] LABS: Apearance,Urine Slightly Cloudy (Clear); Color,Urine Yellow (Yellow); PH,Urine 5.5 (5.0-8.5)
[2020-01-22 14:19] LABS: Bilirubin,Urine Negative (Negative); Blood, Urine 4+ (Negative); Glucose,Urine (UA) Negative (Negative); Ketones,Urine Negative (Negative); Protein,Urine Negative (Negative); UTC Leukocyte Esterase,Urine Negative (Negative); UTC Nitrate,Urine Negative (Negative); Urobilinogen,Urine 0.2 EU/dl (0.2)
== END 2020-01-22 14:20 | disposition home or self-care (01) ==
PROVIDERS: Emergency Provider Nurse Practitioner Family; PCP Internal Medicine Adolescent Medicine
DX: N30.00 Acute cystitis without hematuria (principal); K21.9 Gastro-esophageal reflux disease without esophagitis; G43.709 Chronic migraine without aura, not intractable, without status migrainosus; Z90.49 Acquired absence of other specified parts of digestive tract; Z88.0 Allergy status to penicillin
CPT/HCPCS: 81003; 99201

== ENCOUNTER → 2020-03-21 13:52 | Outpatient (CLI) | payer OTHER, SELFPAY ==
--- NOTE | 2020-03-21 13:59 | XR_ITS ---
PROCEDURE: XR ANKLE WT BEARING LT MIN 3V CLINICAL INDICATION: Pain Pain COMPARISON: CR [id number] XR ankle LT min 3V from 12/27/2017 CR [id number] XR ankle wt bearing LT min 3V from 02/07/2018 CR [id number] XR foot wt bearing LT 3V from 06/05/2018 CR CALLMLT XR calcaneus LT min 2V from 09/09/2018 CR XR FOOT WT BEARING LT 3V from 03/21/2020 FINDINGS: Status post syndesmosis repair with lateral fibular bone plate and translucent fixator with metallic button along the medial aspect of the distal tibia with good alignment. The ankle is otherwise unremarkable. Status post talocalcaneal fusion. There is fusion of the posterior subtalar joint with 2 screws present 1 directed from the calcaneus into the talus and 1 from the talus into the calcaneus. There is good alignment. The remaining foot has an unremarkable appearance. IMPRESSION: 1. Good alignment status post syndesmosis repair with preserved mortise. 2. Status post posterior subtalar calcaneal talar fusion with good alignment Dictated by: Milind Ellis MD 03/21/2020 15:07 Milind Ellis MD in [place] 03/21/2020 15:07
== END ==
LOC: RAD 13:55
PROVIDERS: PCP Internal Medicine Adolescent Medicine; Visit Provider Podiatrist
DX: M79.672 Pain in left foot (principal)
CPT/HCPCS: 73610; 73630

== ENCOUNTER → 2021-02-08 08:50 | Outpatient (CLI) | payer OTHER, SELFPAY ==
--- NOTE | 2021-02-08 08:53 | XR_ITS ---
PROCEDURE: XR KNEE LT 4V CLINICAL INDICATION: LEFT KNEE PAIN FINDINGS: There are mild osteoarthritic changes involving all 3 compartments. Sclerotic density is present involving the medial tibial plateau and proximal aspect of the tibia medially. Has there been prior subchondroplasty on the left?. A small central lucency is noted in the area of increased density on the lateral view. No previous knee films are available for review. No fracture or dislocation. Other findings:None. IMPRESSION: Mild osteoarthritic changes Sclerotic lesion proximal left tibia medially. This could be due to prior subchondroplasty. Please correlate with surgical history. Posttraumatic change/stress reaction, chronic infection, or neoplastic process is also consideration. Dictated by: Milind Ellis MD 02/08/2021 09:34 Milind Ellis MD in [place] 02/08/2021 09:34
== END ==
PROVIDERS: PCP Internal Medicine Adolescent Medicine; Visit Provider Orthopaedic Surgery
DX: M25.562 Pain in left knee (principal)
CPT/HCPCS: 73564

== ENCOUNTER → 2021-02-16 14:23 | Outpatient (CLI) | payer OTHER, SELFPAY ==
--- NOTE | 2021-02-16 14:23 | MR_ITS ---
PROCEDURE: MR KNEE LT WO CON CLINICAL INDICATION: EVALUATE FOR MENISCAL TEAR, SX IN 2019 Medial knee pain COMPARISON: CR XR KNEE LT 4V from 02/08/2021 TECHNIQUE: Routine multiplanar multi echo sequences are performed without gadolinium enhancement. FINDINGS: Cruciate ligaments, collateral ligaments, patellar tendon, and quadriceps tendon are intact. Artifact is present from previous medial subchondroplasty. The menisci are somewhat small but no definite meniscal tear is evident. Decreased T1 and increased T2 signal involves the inferior tip of the patella. No significant effusion. There is lateral patellar subluxation with thinning of the medial patellofemoral ligament. No evidence of complete tear. The lateral patellofemoral ligament has a somewhat undulated appearance consistent with laxity promote it by the lateral patellar subluxation. Patellar cartilage is well preserved. There are mild osteoarthritic changes with decrease in the joint space of the medial and lateral compartment. IMPRESSION: 1. No evidence of meniscal tear. 2. Lateral subluxation of the patella with thinning of the medial patellofemoral ligament suggesting a partial tear or sprain. Increased T2 signal involves the inferior tip of the patella and may represent a subchondral cyst.. This could also be related to posttraumatic change from prior patellar injury or dislocation although that usually is on the medial surface of the patella. 3. Mild osteoarthritic change. Dictated by: Milind Ellis MD 02/17/2021 08:01 Milind Ellis MD in [place] 02/17/2021 08:01
== END ==
PROVIDERS: PCP Nurse Practitioner Family; Visit Provider Orthopaedic Surgery
DX: M25.562 Pain in left knee (principal); G89.29 Other chronic pain
CPT/HCPCS: 73721

== ENCOUNTER 2021-12-31 19:21 | Emergency (ER) | payer BC, SELFPAY ==
[2021-12-31 19:36] VITALS: BMI 26.6
--- NOTE | 2021-12-31 19:38 | CT_ITS ---
PROCEDURE INFORMATION: Exam: CT Head Without Contrast Exam date and time: 12/31/2021 7:42 PM Age: 41 years old Clinical indication: Pain; Headache not specified; Patient HX: Severe headache. TECHNIQUE: Imaging protocol: Computed tomography of the head without contrast. Radiation optimization: All CT scans at this facility use at least one of these dose optimization techniques: automated exposure control; mA and/or kV adjustment per patient size (includes targeted exams where dose is matched to clinical indication); or iterative reconstruction. COMPARISON: [facility] CT HEAD W/O CONTRAST 08/29/2016 11:33 PM FINDINGS: Brain: No large territorial infarction. No hemorrhage. No mass effect or midline shift. Cerebral ventricles: No ventriculomegaly. Paranasal sinuses: No fluid levels. Mastoid air cells: Visualized mastoid air cells are well aerated. Bones/joints: No acute fracture. Soft tissues: No significant soft tissue abnormality. IMPRESSION: No acute intracranial abnormality.
[2021-12-31 19:41] LABS: Microscopic, Urine URINE MICROSCOPIC (MICROSCOPIC)
[2021-12-31 19:43] LABS: Basophils # 0.1 K/mm3 (0-0.2); Basophils % 0.8 % (0.1-2.0); Eosinophils # 0.1 K/mm3 (0.0-0.4); Eosinophils % 0.5 % (0.1-12.0); Hematocrit 44.8 % (37.0-47.0); Hemoglobin 14.6 g/dL (12.2-16.2); Lymphocytes # 1.2 K/mm3 (0.7-4.5); Lymphocytes % 10.9 % (10-50); Mean Corpuscular HGB Conc 32.6 g/dL (31.8-35.4); Mean Corpuscular Hemoglobin 30.1 pg (27.0-31.2); Mean Corpuscular Volume 92.3 fl (81-99); Mean Platelet Volume 8.8 fl (7.4-10.4); Monocytes # 0.4 K/mm3 (0.1-1.0); Monocytes % 3.3 % (1.7-9.3); Neutrophils # 9.4 K/mm3 (1.8-7.8); Neutrophils % 84.5 % (37.0-80.0); Platelet Count 242 K/mm3 (142-424); Red Blood Count 4.86 M/mm3 (4.20-5.40); Red Cell Distribution Width 12.8 % (11.5-17.5); White Blood Count 11.2 K/mm3 (4.8-10.8)
[2021-12-31 19:43] LABS: Appearance,Urine CLEAR (Clear); Bilirubin,Urine Negative (Negative); Blood, Urine 2+ (Negative); Color,Urine YELLOW (Yellow); Glucose,Urine (UA) Negative (Negative); Ketones,Urine Negative (Negative); Leukocyte Esterase,Urine Negative (Negative); Nitrate,Urine Negative (Negative); PH,Urine 7.5 (5.0-8.5); Protein,Urine Negative (Negative)
[2021-12-31 19:49] LABS: Alanine Aminotransferase 20 U/L (12-78); Albumin Level 4.3 g/dl (3.5-5.0); Albumin/Globulin Ratio 1.4 (1.1-1.8); Alkaline Phosphatase 100 U/L (38-126); Anion Gap 12.6 mEq/L (5-15); Aspartate Amino Transferase 23 U/L (14-36); Bilirubin,Total 0.2 mg/dl (0.2-1.3); Blood Urea Nitrogen 9 mg/dl (7-17); Calcium 9.4 mg/dl (8.4-10.2); Carbon Dioxide 27 mmol/L (22.0-30.0); Chloride 105 mmol/L (98-107); Creatinine Clearance Estimated 139 mL/min (50-200); Estimated Glomerular Filt Rate 93 ml/min (>60); GFR (African American) 113 ML/MIN (>60); Globulin 3.1 g/dL (1.3-3.2); Glucose 110 mg/dl (74-100); Potassium 3.6 mmoL/L (3.5-5.1); Sodium 141 mmol/L (136-145); Total Protein,Serum 7.4 g/dl (6.3-8.2)
[2021-12-31 19:53] LABS: HCG Qualitative, Serum Negative (Negative)
[2021-12-31 19:55] LABS: Bacteria,Urine 1+ /lpf; WBC,Urine Occasional #/hpf (0-3)
[2021-12-31 19:56] VITALS: BP 126/74; PULSE 78; RESP 16; TEMP 37; O2SAT 98; BMI 26.6
[2021-12-31 20:31] VITALS: BP 108/62; PULSE 77; O2SAT 99
--- NOTE | 2021-12-31 20:48 | PC.NURSE ---
Rounded on patient to check condition. Patient is laying in bed with the room darkened and a damp wash cloth over her eyes. Pt states that she feels much better than she did when she initially came in. States that her pain now is a 2/10, whereas initially her pain was more of a 9/10. I advised patient that we were still waiting for the results of her ct scan and will update her as soon as possible. Call light provided to patient. Advised patient and daughter to call with any issues.
[2021-12-31 21:00] VITALS: BP 106/63; PULSE 68; O2SAT 99
[2021-12-31 21:30] VITALS: BP 100/58; PULSE 71; O2SAT 98
--- NOTE | 2021-12-31 22:08 | PC.NURSE ---
Patient sleeping at this time
--- NOTE | 2022-01-01 00:27 | PC.NURSE ---
PT updated on POC. Pt states she, Feels much better. No new needs at this time.
--- NOTE | 2022-01-01 01:08 | HMH.EDHA ---
ED Disposition Clinical Impression: Migraine Qualifiers: Migraine type: unspecified Status migrainosus presence: without status migrainosus Intractability: not intractable Qualified Code(s): G43.909 - Migraine, unspecified, not intractable, without status migrainosus Disposition: Home, Self-Care Condition on Discharge: Good Instructions: DI for Migraine Additional Instructions: use meds and see pcp for follow up Referrals: Moncho Talley MD [Primary Care Provider] - - Critical Care Critical Care Time: No Attestation: On 12/31/21, the high probability of a clinically significant, sudden or life threatening deterioration of the following system(s) required my full and direct attention, intervention and personal management. The time I documented below is in addition to time spent performing reported procedures but includes the following listed in this critical care notation. Medical Decision Making - Medical Records Medical records reviewed: Yes: I reviewed the patient's medical records. - Nael Inquiry Pt receiving controlled substance: No Vital Signs: 12/31/21 19:56 12/31/21 20:31 12/31/21 21:00 Temperature 98.6 F Temperature Source Oral Pulse Rate 77 68 Pulse Rate [Apical] 78 Respiratory Rate 16 Blood Pressure 108/62 L 106/63 L Blood Pressure [Right Arm] 126/74 Blood Pressure Mean [Right Arm] 91 Blood Pressure Source [Right Arm] Automatic Cuff Blood Pressure Position [Right Arm] Sitting 02 Sat by Pulse Oximetry 98 99 99 Oxygen Delivery Method Room Air Room Air Room Air 12/31/21 21:30 Temperature Temperature Source Pulse Rate 71 Pulse Rate [Apical] Respiratory Rate Blood Pressure 100/58 L Blood Pressure [Right Arm] Blood Pressure Mean [Right Arm] Blood Pressure Source [Right Arm] Blood Pressure Position [Right Arm] 02 Sat by Pulse Oximetry 98 Oxygen Delivery Method Room Air - Lab Data Lab results reviewed: Yes: I reviewed the patient's lab results. Lab Results 12/31/21 19:28: Urine Color Yellow, Urine Appearance Clear, Urine pH 7.5, Ur Specific [place] 1.020, Urine Protein Negative, Urine Glucose (UA) Negative, Urine Ketones Negative, Urine Blood 2+, Urine Nitrate Negative, Urine Bilirubin Negative, Urine Urobilinogen 1.0, Ur Leukocyte Esterase Negative, Urine RBC 3-5, Urine WBC Occasional, Ur Squamous Epith Cells 5-10, Urine Bacteria 1+ 12/31/21 19:34: WBC 11.2 H, RBC 4.86, Hgb 14.6, Hct 44.8, MCV 92.3, MCH 30.1, MCHC 32.6, RDW 12.8, Plt Count 242, MPV 8.8, Neut % (Auto) 84.5 H, Lymph % (Auto) 10.9, [place] % (Auto) 3.3, Eos % (Auto) 0.5, Baso % (Auto) 0.8, Neut # (Auto) 9.4 H, Lymph # (Auto) 1.2, [place] # (Auto) 0.4, Eos # (Auto) 0.1, Baso # (Auto) 0.1 12/31/21 19:34: Sodium 141, Potassium 3.6, Chloride 105, Carbon Dioxide 27, Anion Gap 12.6, BUN 9, Creatinine 0.70, Estimated Creat Clear 139, Estimated GFR 93, Est GFR ( Amer) 113, Glucose 110 H, Calcium 9.4, Total Bilirubin 0.2, AST 23, ALT 20, Alkaline Phosphatase 100, Total Protein 7.4, Albumin 4.3, Globulin 3.1, Albumin/Globulin Ratio 1.4 12/31/21 19:34: Serum HCG, Qual Negative Result diagrams: 12/31/21 19:34 12/31/21 19:34 Orders (Tests/Meds): ED MEDICATIONS Discontinued Medications Generic Name Dose Route Start Last Admin Trade Name Freq PRN Reason Stop Dose Admin Diphenhydramine HCl 25 mg 12/31/21 19:38 12/31/21 19:42 Diphenhydramine 50mg/Ml Vial IV 12/31/21 19:39 25 mg ONCE ONE Administration Lactated Ringer's 1,000 mls @ 999 mls/hr 12/31/21 19:45 12/31/21 19:41 Lactated Ringer's 1000 Ml Bag IV 12/31/21 20:45 999 mls/hr .[id number] MAYLIN Administration Ketorolac Tromethamine 30 mg 12/31/21 19:37 12/31/21 19:41 Ketorolac 30mg/Ml Vial IV 12/31/21 19:38 30 mg ONCE ONE Administration Metoclopramide HCl 10 mg 12/31/21 19:38 12/31/21 19:42 Metoclopramide Hcl 10mg/2ml Vial IVP 12/31/21 19:39 10 mg ONCE ONE Administration Ondansetron HCl 4 mg 12/31/21
[2022-01-01 01:17] VITALS: BP 100/58; PULSE 71; RESP 18; TEMP 36.8; O2SAT 99
== END 2022-01-01 01:19 | disposition home or self-care (01) ==
PROVIDERS: Student in an Organized Health Care Education/Training Program; Emergency Provider Emergency Medicine; PCP Internal Medicine Adolescent Medicine
DX: G43.909 Migraine, unspecified, not intractable, without status migrainosus (principal)
CPT/HCPCS: 70450; 80053; 81001; 84703; 85025; 96361; 96374; 96375; 99284; J2405

== ENCOUNTER → 2022-10-19 08:00 | Outpatient (CLI) | payer BC, SELFPAY ==
--- NOTE | 2022-10-19 08:04 | MM_ITS ---
PROCEDURE INFORMATION: Exam: Bilateral Screening 3D Mammography Exam date and time: 10/19/2022 7:54 AM Age: 42 years old Clinical indication: Screening examination TECHNIQUE: Imaging protocol: Bilateral Screening tomosynthesis and 2D mammography including computer-aided detection (CAD) when performed. COMPARISON: No relevant prior studies available. FINDINGS: MAMMOGRAPHY: Breast composition: The breasts are heterogeneously dense, which may obscure small masses. Mass: None. Architectural distortion: None. Calcifications: No suspicious calcifications. Asymmetric density: None. Skin thickening: None. Axillary adenopathy: None. IMPRESSION: No mammographic evidence of malignancy. Annual screening is recommended unless otherwise clinically indicated. ASSESSMENT: BI-RADS Category 1: Negative
== END ==
PROVIDERS: PCP Internal Medicine Adolescent Medicine; Visit Provider Internal Medicine Adolescent Medicine
DX: Z12.31 Encounter for screening mammogram for malignant neoplasm of breast (principal)
CPT/HCPCS: 77063; 77067

== ENCOUNTER → 2022-11-19 08:08 | Outpatient (CLI) | payer BC, SELFPAY ==
--- NOTE | 2022-11-19 08:14 | XR_ITS ---
FINAL REPORT CLINICAL HISTORY: Foot Pain COMPARISON: 03/21/2020 FINDINGS: LEFTFOOT: Three views of the left foot were obtained. There is no acute fracture or dislocation. The patient has undergone a prior talocalcaneal fusion and internal fixation of the distal tibia and fibula. The postoperative changes are stable since the prior exam. There are mild degenerative changes in the foot, as well as a mild hallux valgus deformity. There is no soft tissue abnormality. IMPRESSION: No acute bony abnormality. Postoperative changes as described above, stable since 2019. Mild degenerative changes in the foot with a mild hallux valgus deformity. Reviewed, Interpreted and Dictated by Charly Waller III, MD Transcribed by Michelle Pan Authenticated and [facility]
== END ==
PROVIDERS: PCP Internal Medicine Adolescent Medicine; Visit Provider Nurse Practitioner Family
DX: M79.672 Pain in left foot (principal)
CPT/HCPCS: 73630

== ENCOUNTER → 2023-05-23 08:49 | Outpatient (CLI) | payer BC, SELFPAY ==
--- NOTE | 2023-05-23 08:52 | XR_ITS ---
FINAL REPORT CLINICAL HISTORY: Right foot pain FINDINGS: RIGHT FOOT Three views demonstrate no acute fracture or dislocation. There is a small plantar spur. The joint spaces appear normal. No acute soft tissue abnormality is seen. IMPRESSION: No acute process. Reviewed, Interpreted and Dictated by Naga Rasheed MD Transcribed by Sherly Mondragon Authenticated and [facility]
--- OUTSIDE RECORDS SUMMARY | 2023-05-23 08:52 | XMS_ITS | Patient Health Record ---
Author Name Unknown Organization [facility] Address [address] [place] [address] Care Team Providers [employer] Manager Name Role Phone Moncho Talley Primary Care Provider [phone] Moncho Talley Unavailable Unavailable Jessica Ma Unavailable [phone] ALLERGIES Allergen (clinical drug ingredient) Drug/Non Drug Allergy documented on EMR Reaction Allergy Type Onset Date Status contrast dye (uncoded) Unknown Allergy Active penicillin Unknown Drug Allergy Active RESULTS Component Value Reference Range Notes TSH W/REFLEX TO FT4 (88713) Reviewed date:10/15/2022 08:27:14 AM Interpretation: Performing Lab:[facility], [employer]aceuticalsDkllQH[address] Jean Michaud Notes/Report: NON-FASTING; NON-FASTING; NON-FASTING; NON-FASTING FASTING:YES FASTING: YES TSH W/REFLEX TO FT4 1.69 Reference Range > or = 20 Years 0.40-4.50 Ranges First trimester 0.26-2.66 Second trimester 0.55-2.73 Third trimester 0.43-2.91 CBC (INCLUDES DIFF/PLT) (639 9) Reviewed date:10/15/2022 08:27:14 AM Interpretation: Performing Lab:[facility] [employer], [employer] PharmaceuticalsYuyrEB[address] Jean Michaud Notes/Report: NON-FASTING; NON-FASTING; NON-FASTING; NON-FASTING FASTING:YES FASTING: YES WHITE BLOOD CELL COUNT 4.7 3.8-10.8 Thousand/ uL RED BLOOD CELL COUNT 4.88 3.80-5.10 Million/uL HEMOGLOBIN 14.9 11.7-15.5 g/dL HEMATOCRIT 44.2 35.0-45.0 % MCV 90.6 80.0-100.0 fL MCH 30.5 27.0-33.0 pg MCHC 33.7 32.0-36.0 g/dL RDW 12.2 11.0-15.0 % PLATELET COUNT 239 140-400 Thousand/uL MPV 11.1 7.5-12.5 fL ABSOLUTE NEUTROPHILS 3083 [phone] cells/uL ABSOLUTE LYMPHOCYTES [phone] cells/uL ABSOLUTE MONOCYTES 320 200-950 cells/uL ABSOLUTE EOSINOPHILS 28 15-500 cells/uL ABSOLUTE BASOPHILS 19 0-200 cells/uL NEUTROPHILS 65.6 LYMPHOCYTES 26.6 MONOCYTES 6.8 EOSINOPHILS 0.6 BASOPHILS 0.4 COMPREHENSIVE METABOLIC PANE L (05731) Reviewed date:10/15/2022 08:27:14 AM Interpretation: Performing Lab:[facility], [facility], [facility] HealthTqozHZ[address] Jean Michaud Notes/Report: NON-FASTING; NON-FASTING; NON-FASTING; NON-FASTING FASTING:YES FASTING: YES GLUCOSE 83 65-99 mg/dL Fasting reference interval UREA NITROGEN (BUN) 13 7-25 mg/dL CREATININE 0.69 0.50-0.99 mg/dL EGFR 112 > OR = 60 mL/min/1.73m2 The eGFR is based on the CKD-EPI 2020 equation. To calculate the new eGFR from a previous Creatinine or Cystatin C result, go to https://www.kidney.org /professionals/ kdoqi/gfr%5Fcalculator BUN/CREATININE RATIO NOT APPLICABLE 11-15 (calc) SODIUM 138 135-146 mmol/L POTASSIUM 4.1 3.5-5.3 mmol/L CHLORIDE 104 98-110 mmol/L CARBON DIOXIDE 28 20-32 mmol/L CALCIUM 9.3 8.6-10.2 mg/dL PROTEIN, TOTAL 7.1 6.1-8.1 g/dL ALBUMIN 4.5 3.6-5.1 g/dL GLOBULIN 2.6 1.9-3.7 g/dL (calc) ALBUMIN/GLOBULIN RATIO 1.7 1.0-2.5 (calc) BILIRUBIN, TOTAL 0.6 0.2-1.2 mg/dL ALKALINE PHOSPHATASE 78 31-125 U/L AST 13 10-30 U/L ALT 15 6-29 U/L LIPID PANEL, STANDARD (7600) Reviewed date:10/15/2022 08:27:14 AM Interpretation: Performing Lab:[facility], [facility] [address], [place] Jean Michaud Notes/Report: NON-FASTING; NON-FASTING; NON-FASTING; NON-FASTING FASTING:YES FASTING: YES CHOLESTEROL, TOTAL 153 <200 mg/dL HDL CHOLESTEROL 36 > OR = 50 mg/dL TRIGLYCERIDES 104 <150 mg/dL LDL-CHOLESTEROL 97 Reference range: <100 Desirable range <100 mg/dL for primary prevention; <70 mg/dL for patients with CHD or diabetic patients with > or = 2 CHD risk factors. LDL-C is now calculated using the Marissa calculation, which is a validated novel method providing better accuracy than the Friedewald equation in the estimation of LDL-C. Seth DICKENS et al. VLAD. 2013;310(19): 6549-3576 (http://education.bLife.Process Relations/faq/F AQ164) CHOL/HDLC RATIO 4.3 <5.0 (calc) NON HDL CHOLESTEROL 117 <130 mg/dL (calc) For patients with diabetes plus 1 major ASCVD risk factor, treating to a non-HDL-C goal of <100 mg/dL (LDL-C of <70 mg/dL) is considered a therapeutic option. Mammogram : Bilateral Reviewed date:10/24/2022 12:18:29 PM Interpretation: Performing Lab: Notes/Report: REASON FOR REFERRAL No Information MEDICATIONS Medication SIG (Take, Route, Frequency, Duration) Notes Start Date End Date Status meloxicam 7.5 mg 1 tab(s) orally once a day for 90 days Active omeprazole 20 mg 1 cap(s) orally once a day for 30 days 03/04/2023 Active Amphetamine-Dextroamphetamin e ER 20 mg 1 cap(s) orally once a day (in the morning) for 30 days 04/25/2023 Active Nurtec ODT 75 mg DISSOLVE 1 TABLET ON TONGUE EVERY OTHER DAY Active BusPIRone Hydrochloride 10 mg 1 tab(s) orally 2 times a day for 90 days 01/02/2023 Active IMMUNIZATIONS Vaccine Route Administration Date Status Comme nts Flublok IM Intramuscular 04/29/2020 Administered SOCIAL HISTORY Tobacco Use: Social History Observation Description Date Details (start date - stop date) Never Smoker NA - NA Sex Assigned At : Social History Observation Description Sex Assigned At Unknown Smoking: Question Answer Notes Are you a: nonsmoker PROBLEMS Problem Type ICD Code Onset Dates Problem Status W/U Status Risk SNOMED Code Notes Problem Migraine without aura and without status migrainosus, not intractable (G43.009) Active confirmed Migraine without aura, not refractory (200656565) Problem Mood disorder (F39) Active confirmed 24751126 Problem NITHYA (generalized anxiety disorder) (F41.1) Active confirmed 20201108 Problem Adult ADHD (F90.9) Active confirmed 281195309 Problem Attention deficit disorder (ADD) in adult (F98.8) Active confirmed 738959698 Problem 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 343180835 VITAL SIGNS Heart Rate 76 /min 03/04/2023 Temperature 98.0 degrees Fahrenheit 03/04/2023 Blood pressure diastolic 88 mm Hg 03/04/2023 Height 68 in 03/04/2023 Blood pressure systolic 124 mm Hg 03/04/2023 Weight 195 lbs 03/04/2023 BMI 29.65 kg/m2 03/04/2023 Encounters Encounter Location Date Provider Diagnosis [facility] [address] [facility] [address] [place] [address] 12/26/2022 Moncho Besson [facility] [address] [facility] [address] [place] [address] 02/25/2023 Moncho Besson [facility] [address] [facility] [address] [place] [address] 03/06/2023 Moncho Besson [facility] [address] [facility] [address] [place] [address] 03/27/2023 Moncho Besson [facility] [address] [facility] [address] [place] [address] 05/15/2023 Moncho Besson [facility] [address] [place], [place] [address] 10/11/2022 Jessica Ma Routine medical exam Z00.00 ; Migraine without aura and without status migrainosus, not intractable G43.009 ; NITHYA (generalized anxiety disorder) F41.1 ; Visit for screening mammogram Z12.31 and Attention deficit disorder (ADD) in adult F98.8 [facility] [address] [facility] [address] [place], [place] [address] 10/31/2022 Monchomarino Talley Mood disorder F39 [facility] [address] [facility] [address] [place] [address] 11/14/2022 Moncho Besson Migraine without aur a and without status migrainosus, not intractable G43.009 and NITHYA (generalized anxiety disorder) F41.1 [facility] [address] [facility] [address] [place], [place] [address] 01/02/2023 Moncho Besson NITHYA (generalized anxiety disorder) F41.1 and Migraine without aura and without status migrainosus, not intractable G43.009 [facility] [address] [facility] [address] [place] [address] 01/16/2023 Monchomarino Talley Adult ADHD F90.9 ; Migraine without aura and without status migrainosus, not intractable G43.009 and NITHYA (generalized anxiety disorder) F41.1 [facility] [address] [facility] [address] [place] [address] 03/04/2023 Moncho Besson Chest pain, unspecified type R07.9 and Attention deficit disorder (ADD) in adult F98.8 [facility] [address] [place] [address] 09/18/2022 Moncho Besson [facility] [address] [facility] [address] [place] [address] 10/11/2022 Moncho Besson [facility] [address] [facility] [address] [place], [place] [address] 01/17/2023 Moncho Beslawrence ASSESSMENTS Encounter Date Diagnosis Assessment Notes Treatment Notes Treatment Clinical Notes 10/11/2022 Routine medical exam (ICD-10 - Z00.00) Recommend screening labs for age and anxiety symptoms today. Screening questionaires for both Adult ADD and Anxiety provided today and scores high on both. We discussed pros and cons of treatment with different types of medications including stimulants, Qelbree, strattera and wellbutrin. Interested only in stimulant at this point or I wouldn't have come and becomes very accusatory that I believe she is a drug-seeker when I explained the controlled substance status of stimulant medications and the need for controlled substance agreement, MORALES and visits at least every 90 days. 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 10/11/2022 Migraine without aura and without status migrainosus, not intractable (ICD-10 - G43.009) Continue Nurtec, she has no interest in other options or specialty referral at this time 10/31/2022 Mood disorder (ICD-10 - F39) After detailed explanation of patient's symptoms and her use of the word agitated I wonder if she has a mood disorder or possibly could be anxiety. I do not know that she meets ADD criteria and with her issues with frequent visits and staff relationships I am not sure every 3-month visit schedules and controlled substance monitoring would be something she would be able to deal with. She acknowledges this.She is willing to try Vraylar and I gave her 2 weeks of samples. 11/14/2022 Migraine without aura and without status migrainosus, not intractable (ICD-10 - G43.009) Improving with Nurtec. We talked about possibly doing therapy every other day for a preventative basis 11/14/2022 NITHYA (generalized anxiety disorder) (ICD-10 - F41.1) Patient is somewhat dysthymic about trying other medications. I discussed with her my reticence about trying her on a stimulant medication she states it is okay I do not need any help. I have never gotten any help. When I asked her to clarify this she states that she means from medications. However she is only tried Vraylar and amitriptyline. We discussed trial of BuSpar. She is familiar with the medicine because her daughter took it but had some dizziness. We discussed trying 5 mg twice daily and then if this did not cause dizziness we would bump to 10 mg twice daily. She is okay with this and I will see her back in 3 weeks 01/02/2023 Migraine without aura and without status migrainosus, not intractable (ICD-10 - G43.009) 01/02/2023 NITHYA (generalized anxiety disorder) (ICD-10 - F41.1) Overall doing well. Patient seems to be in a better mood and with better relationship issues. Continue to do current medications, follow-up 6 months 01/16/2023 Adult ADHD (ICD-10 - F90.9) Reviewed adult ADD questionnaire, patient scores very highly on the scale, discussed pros and cons of medication, and need for follow-up. We will try Vyvanse as noted given smooth release issues. Refilled medications for other medical conditions as noted below. 03/04/2023 Chest pain, unspecified type (ICD-10 - R07.9) EKG done in office, unremarkable. Physical exam reassuring. Patient's description of pain matches GERD. We will start omeprazole, if she has pain through this then will reevaluate. 03/04/2023 Attention deficit disorder (ADD) in adult (ICD-10 - F98.8) Patient doing well on current stimulant medications at lowest effective dose. No side effects of neurologic or Cardiologic complications. Patient aware of controlled substance status, has been compliant with office procedures, morales reporting is appropriate, and is aware of possible side effects. 01/16/2023 Migraine without aura and without status migrainosus, not intractable (ICD-10 - G43.009) 10/11/2022 NITHYA (generalized anxiety disorder) (ICD-10 - F41.1) 01/16/2023 NITHYA (generalized anxiety disorder) (ICD-10 - F41.1) 10/11/2022 Visit for screening mammogram (ICD-10 - Z12.31) information on self-scheduling provided and order faxed for her convenience. 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 She again has a very blunted affect when discussing the situations. She simply states that she is happy with our office and does not want to leave. Told her that we had actually sent her a discharge letter that she has yet to receive in the mail. I told her to try the Vraylar and we would reassess in 2 weeks how she is doing and whether or not she wanted to continue with our office or we wanted to continue seeing her. If she is able to feel better and perhaps has a little better insight into personal relationship issues then we may continue our doctor-patient relationship. PLAN OF TREATMENT Pending Test Test Name Order Date C-IONIZED CALICIUM 02/04/2020 C-THYROID PROFILE 02/04/2020 M-Partial Thromboplastin Time 08/14/2018 Next Appt Details Provider Name:Moncho Talley, 06/03/2023 11:45:00 AM, [address] [facility] [address], [address], [place], [address], Insurance Providers Payer Name Payer Address Payer Phone Subscriber Number Group Number Insured Name Patient Relationship to Insured Coverage Start Date Coverage End Date [facility] [address] [place] [address] [id number] Capri Hickman Self - patient is the insured MEDICAL (GENERAL) HISTORY Medical History History ICD Code Migraines Anxiety Surgical History Surgery Date(Month/Year) 2004- Gallbladder removal 2006 left ankle 2019 left knee 2018 Hospitalization History Reason Date(Month/Year) 2004
== END ==
LOC: RAD 08:49
PROVIDERS: PCP Internal Medicine Adolescent Medicine; Visit Provider Podiatrist
DX: M79.671 Pain in right foot (principal)
CPT/HCPCS: 73630

== ENCOUNTER 2023-11-16 02:32 | Emergency (ER) | payer BC, SELFPAY ==
[2023-11-16 02:34] VITALS: BP 116/83; PULSE 70; RESP 16; TEMP 36.7; O2SAT 98; BMI 28.1
--- NOTE | 2023-11-16 02:38 | HMH.EDGENADL ---
Discharge Plan Disposition Patient Disposition: Home, Self-Care Prescriptions Prescriptions: No Action dextroamphetamine-amphetamine [Adderall] 20 mg tablet 20 mg PO DAILY buspirone 30 mg tablet 30 mg PO DAILY Nurtec ODT 75 mg tablet,disintegrating 75 mg PO Q OTHER DAY omeprazole 40 mg capsule,delayed release(DR/EC) 40 mg PO DAILY cholecalciferol (vitamin D3) 62.5 mcg (2,500 unit) capsule PO DAILY meloxicam 7.5 mg tablet 7.5 mg PO DAILY 30 Days Qty: 30 2RF diclofenac sodium [Voltaren Arthritis Pain] 1 % gel 4 g topical QID PRN (Reason: pain) 90 Days Qty: 100 2RF Rx Instructions: apply to single knee, ankle, foot; for foot includes sole/toes/top of foot methylprednisolone 4 mg tablets,dose pack See Rx Instructions .ROUTE .COMPLEX Qty: 21 0RF Dose Instruction: TAKE DIRECTED ON PACKAGE FOR 6 DAYS Rx Instructions: TAKE DIRECTED ON PACKAGE FOR 6 DAYS Referrals Follow up/Referrals: Moncho Talley MD [Primary Care Provider] - See instructions Activity Restrictions/Add. Instructions Additional Instructions/Restrictions: Please follow-up with [facility] as soon as possible for further assessment. Please follow-up with your primary care provider. Please return to the emergency department if you develop any new or worsening symptoms or become concerned for your health. Clinical Impressions Clinical Impression: Abnormal uterine and vaginal bleeding, unspecified Instructions Patient Instructions: DI for Abnormal Uterine Bleeding Discharge ED Provider: Timmy Doss Adult HPI General Chief complaint: Abdominal Pain Stated complaint: abd, groin pain Time Seen by Provider: 11/16/23 02:36 History of Present Illness HPI narrative: 43-year-old female history of distant tubal ligation, last menstrual period within the last month, presents with vaginal pain. She reports that she feels like something is coming out of her vagina but she has not seen anything. There is no reason that anything should be coming out. She reports it is focally painful there, she also has some suprapubic tenderness. She denies any tenderness in the right upper quadrant or anywhere else in her abdomen. She denies any recent fever or illness. She reports that she was trying to pee but was unable to earlier. She denies any burning with urination or history of UTIs or kidney stones. Related Data Home Medications Medication Instructions Recorded Confirmed buspirone 30 mg tablet 30 mg PO DAILY 03/08/23 06/10/23 dextroamphetamine-amphetamine 20 20 mg PO DAILY 03/08/23 06/10/23 mg tablet (Adderall) omeprazole 40 mg capsule,delayed 40 mg PO DAILY 03/08/23 06/10/23 release rimegepant 75 mg disintegrating 75 mg PO Q OTHER DAY 03/08/23 06/10/23 tablet (Nurtec ODT) cholecalciferol (vitamin D3) 62.5 mcg PO DAILY 06/10/23 06/10/23 mcg (2,500 unit) capsule Previous Rx's Medication Instructions Recorded diclofenac sodium 1 % topical gel 4 g topical QID PRN pain 90 days 06/10/23 (Voltaren Arthritis Pain) #100 grams meloxicam 7.5 mg tablet 7.5 mg PO DAILY 30 days #30 tabs 06/10/23 methylprednisolone 4 mg tablets in See Rx Instructions .Route 07/04/23 a dose pack .COMPLEX #21 tabs Allergies Allergy/AdvReac Type Severity Reaction Status Date / Time Penicillins [PENICILLINS] Allergy Unknown Hives Verified 06/10/23 13:18 Iodinated Contrast Media AdvReac Verified 06/10/23 13:18 [Iodinated Contrast Media - Oral and] [facility] Disclaimer: The information contained in this section may have been updated after the patient was seen, as this information can be updated by other users. Medical History GERD (gastroesophageal reflux disease) Migraine Syncope Surgical History H/O knee surgery H/O tubal ligation History of delivery History of cholecystectomy History of surgery on lower extremity Family History Other Heart attack Social History Smoking Status: Never smoker second hand exposure: No alcohol intake: never substance use type: denies use current occupational status: employed Travel in the last 8 weeks: None household members: spouse housing: house current occupation: current occupational exposures/hazards: No caffeine: Yes ROS Obtained: Yes All systems reviewed & no additional complaints except as documented Physical Exam General General appearance: alert and in no apparent distress Head Head exam: atraumatic and normocephalic Eye Eye exam: Present normal appearance, PERRL and EOMI ENT ENT exam: Present normal oropharynx and normal external ear exam Neck Neck exam: Present normal inspection and full ROM Chest Chest inspection: Present normal inspection and symmetric chest wall rise; Absent tenderness Respiratory Respiratory exam: Present normal lung sounds bilaterally; Absent respiratory distress Cardiovascular Cardiovascular exam: Present regular rate and normal rhythm Abdominal Exam Abdominal exam: Present soft and tenderness (suprapubic); Absent distention or guarding External exam: Present other (deferred by patient) Bimanual exam: Present other Extremities Exam Extremities exam: Present normal inspection; Absent edema or joint swelling Back Exam Back exam: Present normal inspection; Absent tenderness Neurological Exam Neurological exam: Present alert and oriented X3; Absent motor sensory deficit Psychiatric Psychiatric exam: Present normal affect and normal mood Skin Skin exam: Present warm, dry and normal color Lymphatic Lymphatic Findings: no adenopathy Medical Decision Making Medical Records Medical records reviewed: Yes I reviewed the patient's medical records. Nael Inquiry Pt receiving controlled substance: No Nael was queried for this patient: No Vital Signs: 11/16/23 02:34 Temperature 98.0 F Temperature Source Oral Pulse Rate [Right] 70 Respiratory Rate 16 Blood Pressure [Right Arm] 116/83 Blood Pressure Mean [Right Arm] 94 02 Sat by Pulse Oximetry 98 Lab Data Lab results reviewed: Yes I reviewed the patient's lab results. Lab Results 11/16/23 02:40: Urine Color Yellow, Urine Appearance Clear, Urine pH 6.0, Ur Specific [place] 1.010, Urine Protein Negative, Urine Glucose (UA) Negative, Urine Ketones Negative, Urine Blood Trace-i, Urine Nitrate Negative, Urine Bilirubin Negative, Urine Urobilinogen 0.2, Ur Leukocyte Esterase Negative, Urine RBC None, Urine WBC 3-5, Ur Squamous Epith Cells Occasional, Urine Bacteria Trace, Urine HCG, Qual Negative 11/16/23 02:50: WBC 7.4, RBC 4.58, Hgb 13.8, Hct 41.9, MCV 91.5, MCH 30.2, MCHC 33.0, RDW 13.5, Plt Count 250, MPV 8.7, Neut % (Auto) 67.8, Lymph % (Auto) 25.0, [place] % (Auto) 5.1, Eos % (Auto) 1.3, Baso % (Auto) 0.8, Neut # (Auto) 5.0, Lymph # (Auto) 1.9, [place] # (Auto) 0.4, Eos # (Auto) 0.1, Baso # (Auto) 0.1, Sodium 138, Potassium 3.5, Chloride 103, Carbon Dioxide 25, Anion Gap 13.5, BUN 16, Creatinine 0.70, Estimated Creat Clear 140, Estimated GFR 92, Est GFR ( Amer) 112, Glucose 96, Calcium 9.3, Total Bilirubin 0.5, AST 25, ALT 25, Alkaline Phosphatase 79, Total Protein 6.8, Albumin 4.1, Globulin 2.7, Albumin/Globulin Ratio 1.5 11/16/23 02:50 11/16/23 02:50 Orders (Tests/Meds): ED MEDICATIONS Discontinued Medications Generic Name Dose Route Start Last Admin Trade Name Freq PRN Reason Stop Dose Admin Acetaminophen 1,000 mg 11/16/23 02:43 11/16/23 02:58 Acetaminophen 500mg Tab PO 11/16/23 02:44 1,000 mg ONCE ONE Administration Ketorolac Tromethamine 30 mg 11/16/23 02:43 11/16/23 02:58 Ketorolac 30mg/Ml Vial IV 11/16/23 02:44 30 mg ONCE ONE Administration Morphine Sulfate 4 mg 11/16/23 02:43 11/16/23 02:58 Morphine 4mg/Ml Syringe IV 11/16/23 02:44 4 mg ONCE ONE Administration Ondansetron HCl 4 mg 11/16/23 02:43 11/16/23 02:58 Ondansetron 4mg/2ml Vial IV 11/16/23 02:44 4 mg ONCE ONE Administration ORDERS Category Date Time Status CT abdomen pelvis wo con Stat Cat Scan 11/16/23 02:58 Completed US transvaginal Stat Exams 11/16/23 04:03 Completed CBC w/Auto Diff [Complete Blood Count Auto Diff] Stat Lab 11/16/23 02:50 Completed CMP [Comprehensive Metabolic Panel] Stat Lab 11/16/23 02:50 Completed UA [Urinalysis and Microscopic] Stat Lab 11/16/23 02:40 Completed Urine , HCG Qual. Stat Lab 11/16/23 02:40 Completed Medical Decision Narrative: 43-year-old female with history as documented above presents for moderate to severe midline low pelvic/vaginal pain and difficulty urinating. History was obtained interactive discussion with patient, family, chart review. On arrival, patient is [afebrile, hemodynamically stable, satting appropriately, alert, oriented x4, GCS 15], moving all extremities spontaneously. Full physical exam performed and significant for suprapubic tenderness. exam was offered but initially deferred by patient. Differential includes but is not limited to UTI, bladder/ureteral stone, kidney stone, pyelonephritis, ovarian pathology, mittelschmerz, vaginal foreign body, vaginal lesion. Patient was given Tylenol Toradol morphine Zofran for symptomatic management and correction of underlying abnormalities. Workup initiated including CT Abdo pelvis Noncon, UA, urine pride, CBC CMP. Considered CT abdomen pelvis with contrast but patient has IV contrast allergy. On re-evaluation, patient [remains afebrile, HD stable.] Continues to have severe intermittent pain. Laboratory workup independently interpreted by me and significant for no leukocytosis, negative test, no significant electrolyte derangement, normal renal function. Imaging independently interpreted by me and significant for CT shows fluid density lesion in the lower uterine segment/cervix, otherwise no apparent pathology noted.. See radiology read for full review of final results. Given persistent symptoms, pelvic ultrasound obtained to assess for torsion or other pathology. Transvaginal ultrasound was obtained, at the end of the ultrasound procedure the patient began to have vaginal bleeding. It subsided by the time she returned to the room. The transvaginal ultrasound shows a distended cervix and lower uterine segment containing a large amount of blood with uncertain etiology. Shows a possible cervical mass. Given patient history, exam and workup, patient's presentation most likely represents abnormal uterine bleeding and potential cervical mass. These findings were communicated to patient. I offered the patient a vaginal exam to assess the area but she declined. At time of discharge her symptoms were improved and she was not actively bleeding. She was encouraged to follow-up with [facility] as soon as possible for further assessment. Return precautions given. Procedures Risk/Benefits of Procedure(s) Were Explained: Yes Critical Care Critical Care Time Critical Care Time: No
[2023-11-16 02:47] LABS: Microscopic, Urine URINE MICROSCOPIC (MICROSCOPIC)
[2023-11-16 02:49] LABS: Appearance,Urine CLEAR (Clear); Bilirubin,Urine Negative (Negative); Blood, Urine TRACE-I (Negative); Color,Urine YELLOW (Yellow); Glucose,Urine (UA) Negative (Negative); Ketones,Urine Negative (Negative); Leukocyte Esterase,Urine Negative (Negative); Nitrate,Urine Negative (Negative); Protein,Urine Negative (Negative); Urobilinogen,Urine 0.2 EU/dl (0.2)
[2023-11-16 02:53] LABS: Urine Pregnancy, HCG Qual. Negative (Negative)
[2023-11-16 02:57] LABS: Basophils # 0.1 K/mm3 (0-0.2); Basophils % 0.8 % (0.1-2.0); Eosinophils # 0.1 K/mm3 (0.0-0.4); Eosinophils % 1.3 % (0.1-12.0); Hematocrit 41.9 % (37.0-47.0); Hemoglobin 13.8 g/dL (12.2-16.2); Lymphocytes # 1.9 K/mm3 (0.7-4.5); Mean Corpuscular Hemoglobin 30.2 pg (27.0-31.2); Mean Corpuscular Volume 91.5 fl (81-99); Mean Platelet Volume 8.7 fl (7.4-10.4); Monocytes # 0.4 K/mm3 (0.1-1.0); Monocytes % 5.1 % (1.7-9.3); Neutrophils % 67.8 % (37.0-80.0); Platelet Count 250 K/mm3 (142-424); Red Blood Count 4.58 M/mm3 (4.20-5.40); Red Cell Distribution Width 13.5 % (11.5-17.5); White Blood Count 7.4 K/mm3 (4.8-10.8)
[2023-11-16] MEDS: ONDANSETRON 4MG/2ML VIAL 4 MG IV (02:58)
[2023-11-16] MEDS: ACETAMINOPHEN 500MG TAB 1000 MG PO (02:58)
[2023-11-16] MEDS: MORPHINE 4MG/ML SYRINGE 4 MG IV (02:58)
[2023-11-16] MEDS: KETOROLAC 30MG/ML VIAL 30 MG IV (02:58)
--- NOTE | 2023-11-16 02:58 | CT_ITS ---
PROCEDURE INFORMATION: Exam: CT Abdomen And Pelvis Without Contrast Exam date and time: 11/16/2023 3:05 AM Age: 43 years old Clinical indication: Pain; Other: Lower pelvic; Additional info: Low pelvic pain, urinary symptoms TECHNIQUE: Imaging protocol: Computed tomography of the abdomen and pelvis without contrast. Radiation optimization: All CT scans at this facility use at least one of these dose optimization techniques: automated exposure control; mA and/or kV adjustment per patient size (includes targeted exams where dose is matched to clinical indication); or iterative reconstruction. COMPARISON: CR CXR2V XR chest 2V 08/26/2018 10:18 AM FINDINGS: Liver: Normal. No mass. Gallbladder and biliary ducts: Cholecystectomy. Pancreas: Normal. No ductal dilation. Spleen: Normal. No splenomegaly. Adrenal glands: Normal. No mass. Kidneys and ureters: Normal. No hydronephrosis. Stomach and bowel: Moderate stool seen throughout the colon no ileus or obstruction noted. Appendix: No evidence of appendicitis. Intraperitoneal space: Unremarkable. No free air. No significant fluid collection. Vasculature: Unremarkable. No abdominal aortic aneurysm. Lymph nodes: Unremarkable. No enlarged lymph nodes. Urinary bladder: Unremarkable as visualized. Reproductive: There is an area of low attenuation seen in the region of the cervix and lower uterine segment, consider pelvic sonography for further evaluation. Bones/joints: Unremarkable. No acute fracture. Soft tissues: Unremarkable. IMPRESSION: 1. Moderate stool seen throughout the colon no ileus or obstruction noted. 2. Focal area of low attenuation seen in the region of the cervix and lower uterine segment, consider pelvic sonography for further evaluation.
[2023-11-16 02:59] LABS: Bacteria,Urine Trace /lpf; Squamous Epithelial Cell,Urine Occasional #/hpf (0-5)
[2023-11-16 03:08] LABS: Albumin Level 4.1 g/dl (3.5-5.0); Albumin/Globulin Ratio 1.5 (1.1-1.8); Blood Urea Nitrogen 16 mg/dl (7-17); Calcium 9.3 mg/dl (8.4-10.2); Creatinine Clearance Estimated 140 mL/min (50-200); Estimated Glomerular Filt Rate 92 ml/min (>60); GFR (African American) 112 ML/MIN (>60); Globulin 2.7 g/dL (1.3-3.2); Glucose 96 mg/dl (74-100); Potassium 3.5 mmoL/L (3.5-5.1); Sodium 138 mmol/L (136-145); Total Protein,Serum 6.8 g/dl (6.3-8.2)
[2023-11-16 03:09] LABS: Alanine Aminotransferase 25 U/L (12-78); Alkaline Phosphatase 79 U/L (38-126); Aspartate Amino Transferase 25 U/L (14-36); Bilirubin,Total 0.5 mg/dl (0.2-1.3); Carbon Dioxide 25 mmol/L (22.0-30.0)
[2023-11-16 03:10] LABS: Anion Gap 13.5 mEq/L (5-15); Chloride 103 mmol/L (98-107)
--- NOTE | 2023-11-16 04:03 | US_ITS ---
PROCEDURE INFORMATION: Exam: US Pelvis, Transvaginal, Non-Obstetric Exam date and time: 11/16/2023 4:22 AM Age: 43 years old Clinical indication: Pelvic pain; Additional info: Acute onset pelvic pain, nausea, TECHNIQUE: Imaging protocol: Real-time transvaginal pelvic (non-obstetric) ultrasound with image documentation. Transvaginal imaging was used for better evaluation of the endometrium, adnexa, and/or cervix. COMPARISON: CT ABDOMEN PELVIS WO CON 11/16/2023 3:05 AM FINDINGS: Uterus: The uterus measures 11.2 x 6.1 x 5.8 cm. The endometrium measures 1.2 cm. There is a large amount of blood seen within the lower endometrium and cervix this may represent a large clot. There may be a mass present it is difficult to differentiate from the blood. Right ovary/adnexa: The right ovary measures 3.1 x 1.9 x 1.9 cm. Left ovary/adnexa: The left ovary measures 3.6 x 2.3 x 1.4 cm. Urinary bladder: Urinary bladder is limited. Vasculature: Arterial and venous flow is seen in the adnexa bilaterally. Intraperitoneal space: No free fluid. IMPRESSION: Distended cervix and lower uterine segment containing a large amount of blood. Etiology of this is not clear. Questionable cervical mass. Consider direct visualization and or MRI for further evaluation.
--- NOTE | 2023-11-16 04:04 | PC.NURSE ---
notified xray of transvaginal ultrasound order
--- NOTE | 2023-11-16 05:59 | PC.NURSE ---
rounded on patient, at bedside, no needs at this time
[2023-11-16 06:28] VITALS: BP 105/67; PULSE 58; RESP 16; TEMP 36.6; O2SAT 100
== END 2023-11-16 06:34 | disposition home or self-care (01) ==
PROVIDERS: Emergency Provider Emergency Medicine; PCP Internal Medicine Adolescent Medicine
DX: R10.30 Lower abdominal pain, unspecified (principal); N93.9 Abnormal uterine and vaginal bleeding, unspecified
CPT/HCPCS: 74176; 76830; 80053; 81001; 81025; 85025; 96374; 96375; 99285; J1885; J2270; J2405

== ENCOUNTER 2023-12-09 14:16 | Outpatient (CLI) | payer BC, SELFPAY ==
--- NOTE | 2023-12-09 14:17 | MR_ITS ---
FINAL REPORT CLINICAL HISTORY: cervical mass COMPARISON: 11/16/2023 FINDINGS: Multi planar MR imaging of the pelvis was performed without contrast. The uterus is anteverted and anteflexed. The uterus is normal in size for age. The endometrial cavity and cervix are distended with T2 hyperintensity and T1 hyperintensity, likely blood product. A discrete mass of the cervix is not identified on noncontrast imaging. On series 18, image 24, there appears to be cervical stenosis at the external os. The vagina is unremarkable. The right ovary is unremarkable with small follicles. There is a 2.6 cm cyst in the left ovary, likely functional cyst for patient's age. Limited images of the GI tract are unremarkable. There is no evidence of pelvic lymphadenopathy. The remaining soft tissues are without acute abnormality. IMPRESSION: No cervical mass identified. Please correlate with pelvic exam. If a mass is seen at pelvic exam, MR could be repeated using a female pelvis protocol without and with contrast. Cervical stenosis at the external os causing hematometra. Left ovarian cyst, likely a functional cyst. Given size of less than 3 cm, no follow-up is needed. Reviewed, Interpreted and Dictated by Abi Hickman MD Transcribed by Rosa Wilcox Authenticated and . [facility]
== END 2023-12-09 23:59 | disposition home or self-care (01) ==
LOC: RAD 14:17
PROVIDERS: PCP Internal Medicine Adolescent Medicine; Visit Provider Obstetrics & Gynecology
DX: N88.8 Other specified noninflammatory disorders of cervix uteri (principal); R93.89 Abnormal findings on diagnostic imaging of other specified body structures; N93.9 Abnormal uterine and vaginal bleeding, unspecified
CPT/HCPCS: 72195

== ENCOUNTER 2024-01-01 07:28 | Outpatient (CLI) | payer BC, SELFPAY ==
--- NOTE | 2024-01-01 07:31 | US_ITS ---
PROCEDURE: US TRANSVAGINAL CLINICAL INDICATION: Pelvic Pain COMPARISON: US US TRANSVAGINAL from 11/16/2023 FINDINGS: Transvaginal sonographic images of the pelvis were obtained. UTERUS: 8.5cm x 7.0cmx 4.8 cm retroflexed with a combined endometrial thickness of 9.1mm. There is fluid in the cervix. A scar is seen. LEFT OVARY: 3.4cmx 2.4 cmx2.0 cm with a volume of 8.3ml. There are multiple small follicles in the left ovary. RIGHT OVARY: 3.6 cm x 1.7 cmx1.9 cm with a volume of 6ml. There are several small follicles in the right ovary. The largest follicle measures 1.5 cm. Both ovaries are seen and appear normal. Doppler flow to both ovaries are seen. There is no fluid in the cul-de-sac. IMPRESSION: 1. Retroflexed uterus normal in shape and bulky in size. The endometrium appears normal and measures 9.1 mm. 2. There is fluid in the cervix. 3. Both ovaries are seen and contain multiple follicles. The right ovary contains a 1.5 cm follicle. 4. No fluid in the cul-de-sac. Dictated by: Ashish Earl MD 01/01/2024 17:38 Ashish Earl MD in [place] 01/01/2024 17:38
== END 2024-01-01 23:59 | disposition home or self-care (01) ==
LOC: RAD 07:29
PROVIDERS: PCP Internal Medicine Adolescent Medicine; Visit Provider Obstetrics & Gynecology
DX: R10.2 Pelvic and perineal pain (principal)
CPT/HCPCS: 76830

== ENCOUNTER 2024-05-14 07:58 | Outpatient (CLI) | payer BC, SELFPAY ==
--- NOTE | 2024-05-14 07:58 | US_ITS ---
PROCEDURE: US TRANSVAGINAL CLINICAL INDICATION: dysmenorrhea and menorrhagia COMPARISON: CT CT ABDOMEN PELVIS WO CON from 11/16/2023 US US TRANSVAGINAL from 11/16/2023 US US TRANSVAGINAL from 01/01/2024 FINDINGS: Transvaginal and transabdominal sonographic images of the pelvis were obtained. UTERUS: 9.9 cm x 6.4cmx 5.5cm retroflexed with a combined endometrial thickness of 12.9mm. The endometrium appears homogeneous. The anterior myometrium is heterogenous and hyperechoic. There is a small amount of fluid within the cervical canal and a small nabothian cyst as well. LEFT OVARY: 3.4cmx 2.7 cmx1.6cm with a volume of 7.6ml. RIGHT OVARY: 2.9 cmx 2.9 cm x1.3cm with a volume of 5.9ml. There are several small peripheral follicles. Both ovaries are seen and appear normal. Doppler flow to both ovaries are seen. There is no fluid in the cul-de-sac. IMPRESSION: 1. Retroflexed uterus slightly bulky and otherwise normal. The anterior myometrium seems to be more heterogenous and hyperechoic and could be as result of adenomyosis. 2. The endometrium 12.9 mm and likely premenstrual. The endometrium appears homogeneous. 3. The right ovary is seen and has a few peripheral follicles. The left ovary is only seen transabdominally and appears normal. 4. No fluid in the cul-de-sac. Dictated by: Ashish Earl MD 05/14/2024 10:44 Ashish Earl MD in [facility] 05/14/2024 10:44
== END 2024-05-14 23:59 | disposition home or self-care (01) ==
LOC: RAD 07:58
PROVIDERS: PCP Internal Medicine Adolescent Medicine; Visit Provider Obstetrics & Gynecology
DX: R10.2 Pelvic and perineal pain (principal); N92.4 Excessive bleeding in the premenopausal period
CPT/HCPCS: 76830

== ENCOUNTER 2024-12-03 06:54 | Outpatient (CLI) | payer BC, SELFPAY ==
--- OUTSIDE RECORDS SUMMARY | 2024-08-29 17:30 | XMS_ITS ---
Author Organization [facility] Address [address] [place] [address] Care Team Providers Care Boat Cleaning Supervisor Name Role Phone Moncho Talley Primary Care Provider Moncho Talley Unavailable Unavailable Migration, Provider Unavailable Unavailable Allergies Allergen (clinical drug ingredient) Drug/Non Drug Allergy documented on EMR Reaction Allergy Type Onset Date Status CONTRAST DYE (uncoded) Unknown Allergy Active Penicillin Unknown Drug Allergy Active REASON FOR VISIT [facility] To [facility] Conversion Encounter Medications Medication SIG (Take, [...] Active Encounters Encounter Location Date Provider Diagnosis [facility] [address] [place] [address] 08/29/2024 Provider Migration Attention deficit disorder (ADD) [...] Karie DUVALLJosé MiguelB: 2 (44 yo F)Acc No.[id number]:08/29/2024 Patient: Capri YBARRA Provider: Cathie Jacinto :1980 A ge:44 Y S ex:Female Date:08/29/2024 Address:[address] [place] [address] [place], [id number] Pcp:Moncho Talley Subjective: * Chief Complaints: * 1 . [facility] To [facility] Conversion Encounter. * Medical History: * [...] Electronic signature of Prov ider Migration on 12/03/2024 at 06:56 AM EDT Sign off status: Pending * Provider: Cathie stevens Migration Date: 0 08/29/2024 Generated for Armando car/Maria D/Cadenceitting on: 0 12/03/2024 06:56 AM EDT
--- OUTSIDE RECORDS SUMMARY | 2024-10-12 04:45 | XMS_ITS ---
Author Organization [facility] Address [address] [place] [address] Care Team Providers Care Diesel Fitter Mechanic Name Role Phone Moncho Talley Primary Care Provider Moncho Talley Unavailable Unavailable REASON FOR VISIT 3 month check up Encounters Encounter Location Date Provider Diagnosis [facility] [address] [place] [address] 10/12/2024 Moncho Talley Attention deficit disorder (ADD) [...] * Lauro DUVALLB: 2 (44 yo F)Acc No.[id number]:10/12/2024 Progress Notes Patient: Capri YBARRA Provider: Lizzeth Talley MD :1980 A ge:44 Y S ex:Female Date:10/12/2024 Address:[facility] [place] , [facility], [id number] Subjective: * Chief Complaints: * 1 . [...] x weekly * * Electronic signature of Shiraz Talley MD FAAP on 12/03/2024 at 06:56 AM EDT Sign off status: Pending * Provider: Lizzeth Talley MD Date: 10/12/2024 Generated for Armando car/Maria D/Stevesmitting on: 0 12/03/2024 06:56 AM EDT
--- OUTSIDE RECORDS SUMMARY | 2024-11-04 04:45 | XMS_ITS ---
Author Organization [facility] Address [address] [place] [address] Care Team Providers Care Sliver Machine Operator Name Role Phone Moncho Talley Primary Care Provider Moncho Talley Unavailable Unavailable Allergies Allergen (clinical drug ingredient) Drug/Non Drug Allergy documented on EMR Reaction Allergy Type Onset Date Status CONTRAST DYE (uncoded) Unknown Allergy Active Penicillin Unknown Drug Allergy Active REASON FOR VISIT 3 Month follow up Medications Medication SIG (Take, Route, Frequency, Duration) Notes Start Date End Date Status Meloxicam 7.5 MG 1 tab(s) orally once a day; Duration: 90 days Active Omeprazole 20 MG 1 cap(s) orally once a day; Duration: 90 days Active Amphetamine-Dextroamphet ER 20 MG 1 cap(s) orally once a day (in the morning); Duration: 30 days 08/13/2024 Active Ondansetron 8 MG 1 tab(s) orally 3 ti mes a day; Duration: 5 days 08/25/2024 Active Nurtec 75 mg DISSOLVE 1 TABLET ON TONGUE EVERY OTHER DAY; Duration: 30 Active busPIRone HCl 10 MG 1 tab(s) orally 2 ti mes a day; Duration: 90 days 01/02/2023 Active Social History Tobacco Use: Social History Observation Description Date Details (start date - stop date) Never Smoker NA - NA Smoking: Question Answer Notes Are you a: nonsmoker Vital Signs Temperature 97.7 degrees Fahrenheit 11/05/19 25 Blood pressure systolic 116 mm Hg 11/05/19 25 Blood pressure diastolic 78 mm Hg 025 Heart Rate 72 /min 11/04/2024 Height 68 in 11/04/2024 Weight 187 lbs 11/04/2024 BMI 28.43 kg/m2 11/04/2024 Encounters Encounter Location Date Provider Diagnosis [facility] [address] [place] [address] 11/04/2024 Moncho Talley Attention deficit disorder (ADD) in adult F98.8 and NITHYA (generalized anxiety disorder) F41.1 Assessments Encounter Date Diagnosis (ICD Code) Assessment Notes Treatment Notes Treatment Clinical Notes Section Notes 11/04/2024 Attention deficit disorder (ADD) in adult (ICD-10 - F98.8) Doing well with current medication, follow-up in 3 months for controlled substance regulation adherence. On lowest effective dose, no neurologic side effects. 11/04/2024 NITHYA (generalized anxiety disorder) (ICD-10 - F41.1) Continue as needed medication. Will DC diazepam off her list since she does not currently have this Plan Of Treatment Medication Medication Name Sig Start Date Stop Date Notes diazePAM 2 MG 1 tab(s) orally every 8 hours 08/13/2024 Treatment Notes Assessment Notes Attention deficit disorder (ADD) in adul t Doing well with current medication, follow-up in 3 months for controlled substance regulation adherence. On lowest effective dose, no neurologic side effects. NITHYA (generalized anxiety disorder) Jodi nue as needed medication. Will DC diazepam off her list since she does not currently have this Next Appt Details Follow Up: 3 Months, Reason: Progress Notes * Karie DUVALLJosé MiguelB: 2 (44 yo F)Acc No.[id number]:11/04/2024 Progress Notes Patient: Capri YBARRA Provider: Lizzeth Talley MD :1980 A ge:44 Y S ex:Female Date:11/04/2024 Address:[place], [id number] Subjective: * Chief Complaints: * 1 . 3 Month follow up. * HPI: g en: Here to follow-up her adult ADHD. Doing well. 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 A little stressed with her adolescent child's emotional issues. Otherwise doing well, only takes Adderall on a as needed basis when she feels like things are very stressful or she is having a lot of tasks multiple places during the day. He is not taking diazepam at all. That was a short-term medicine when her [id number] . Buspirone is doing well for her. So is meloxicam. * Medical History: M igraines, Anxiety, Uterine Mass. * Surgical History: C -Section 2004-, Gallbladder removal 2006, left ankle 2019, left knee 2018. * Hospitalization/Major Diagno stic Procedure: C -Section 2004. * Family History: F ather: alive. M other: alive. P aternal Grand Father: . P aternal Grand Mother: . M aternal Grand Father: alive. M aternal Grand Mother: . M aternal uncle: alive. M aternal aunt: alive. S iblings: alive. C hildren: alive. 1 sister(s) - healthy. 1 son(s) , 2 daughter(s) - healthy. . * Social History: S moking A re you a: n onsmoker. R ecreational drug use: no. Exercise: yes. Home smoke detector use: yes. Caffeine: yes, 1 soda most days. Living Will: Yes. Alcohol: no. Sexually active: yes. Travel outside [place]: no. 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 * Medications: T aking busPIRone HCl 10 MG Tablet 1 tab(s) orally 2 times a day , Taking Meloxicam 7.5 MG Tablet 1 tab(s) orally once a day , Taking Omeprazole 20 MG Capsule Delayed Release 1 cap(s) orally once a day , Taking diazePAM 2 MG Tablet 1 tab(s) orally every 8 hours , Taking Amphetamine-Dextroamphet ER 20 MG Capsule Extended Release 24 Hour 1 cap(s) orally once a day (in the morning) , Taking Ondansetron 8 MG Tablet Disintegrating 1 tab(s) orally 3 times a day , Taking Nurtec 75 mg Tablet Disintegrating DISSOLVE 1 TABLET ON TONGUE EVERY OTHER DAY , Medication List reviewed and reconciled with the patient * Allergies: P enicillin, CONTRAST DYE. Objective: * Vitals: N urse: be, Pain: 4, Temp: 97.7, RR: 14, HR: 72, BP: 116/78, Ht: 68, Wt: 187, BMI:28.43. * Examination: G eneral Examination: General P leasant and Cooperative, NAD on RA,. Heart: R egular Rate and Rhythm, no murmur, rubs or gallops. Lungs: L CTAB, No wheezes, crackles or rhonchi, Good air movement,. Abdomen: S oft, NTND, BSNA, No organomegaly or peritoneal signs.. Neurologic Exam: n o focal signs,, normal sensation, strength, tone and reflexes,, Alert and oriented x 3. Assessment: * Assessment: 1. A ttention deficit disorder (ADD) in adult - F98.8 (Primary) 2 . G AD (generalized anxiety disorder) - F41.1 Plan: * Treatment: 2. G AD (generalized anxiety disorder) Stop diazePAM Tablet, 2 MG, 1 tab(s), orally, every 8 hours. Notes: Continue as needed medication. Will DC diazepam off her list since she does not currently have this * Follow Up: 3 Months * * Sign off status: Completed true * Provider: Lizzeth Talley MD Date: 0 11/04/2024 Generated for Armando car/Maria D/Cadenceitting on: 0 12/03/2024 06:56 AM EDT History and Physical Notes * HPI (History of Present Illness) Category Sub-Category Detail Notes Category Not es gen Here to follow-up her adult ADHD. Doing well. 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 A little stressed with her adolescent child's emotional issues. Otherwise doing well, only takes Adderall on a as needed basis when she feels like things are very stressful or she is having a lot of tasks multiple places during the day. He is not taking diazepam at all. That was a short-term medicine when her [id number] . Buspirone is doing well for her. So is meloxicam. Examination Category Sub-Category Detail Notes Category Not es General Examination Heart: Regular Rate and Rhythm, no murmur, rubs or gallops Lungs: LCTAB, No wheezes, c rackles or rhonchi, Good air movement, Abdomen: Soft, NTND, BSNA, No organomegaly or peritoneal signs. Neurologic Exam: no focal signs,, nor mal sensation, strength, tone and reflexes,, Alert and oriented x 3 General Pleasant and Coopera tive, NAD on RA,
--- OUTSIDE RECORDS SUMMARY | 2024-12-03 06:55 | XMS_ITS | Continuity of Care Document ---
Author Name [facility] Organization [facility] Care Team Providers Care Windows Server Architect Name Role Phone [facility] Unavailable Unavailable Problems Combined list of problems from Department of Defense and Veterans Affairs facilities. It does not include entries that were removed or entered in error. Problem Status Onset Date Problem Type Date of Resolution Comments Source vomiting Inactive Condition DoD DEHYDRATION (Na, H2O) Inactive Condition DoD COMMON COLD Active Condition DoD Allergies, Adverse Reactions, Alerts Combined list of allergies from Department of Defense and Veterans Affairs facilities. It does not include entries that were removed or entered in error. Substance Category Reaction Severity Reaction type Status Date Reported Comments Source Penicillins Drug allergy (disorder) Unknown active 04/16/2001 DoD Immunizations Combined list of available immunizations from the Department of Defense and Veterans Affairs facilities. Immunization Series Date Given Administered By Site Reaction Lot Number CVX Code Drug Truss Designer Status Comments Source Influenza, injectable, MDCK, preservative free, quadrivalent 2020 ROSA, () Not Given Influenza , injectabl e, MDCK, preservat martha free, quadrival ent DoD COVID-19, mRNA, LNP-S, PF, 30 mcg/0.3 mL dose 2020 [employer] [place] (PFR) Not Given COVID-19, mRNA, LNP-S, PF, 30 mcg/0.3 mL dose DoD COVID-19, mRNA, LNP-S, PF, 30 mcg/0.3 mL dose 2020 [employer] [place] (PFR) Not Given COVID-19, mRNA, LNP-S, PF, 30 mcg/0.3 mL dose DoD Influenza, seasonal, injectable, preservative free 1 2012 [id number] [employer]. (NOV) complet ed Influenza , seasonal, injectabl e, preservat martha free DoD hepatitis B vaccine, adult dosage 3 2012 [id number] [facility] ([facility]) complet ed hepatitis B vaccine, adult dosage DoD hepatitis B vaccine, adult dosage 2 2012 [id number] 43 [facility] ([facility]) complet ed hepatitis B vaccine, adult dosage DoD hepatitis A vaccine, adult dosage 2 2012 [id number] 52 [facility] ([facility]) complet ed hepatitis A vaccine, adult dosage DoD tetanus toxoid, reduced diphtheria toxoid, and acellular pertu is vaccine, adsorbed 1 2012 [id number] Sanofi Pasteur ([facility]) complet ed tetanus toxoid, reduced diphtheri a toxoid, and acellular pertussis vaccine, adsorbed DoD Influenza, seasonal, injectable, preservative free 1 2011 [id number] 51 [employer], [employer] ([facility]) complet ed Influenza , seasonal, injectabl e, preservat martha free DoD tetanus and diphtheria toxoids, adsorbed, preservative free, for adult use (2 Lf of tetanus toxoid and 2 Lf of diphtheria toxoid) 1 2011 [id number] Sanofi Pasteur ([facility]) complet ed tetanus and diphtheri a toxoids, adsorbed, preservat martha free, for adult use (2 Lf of tetanus toxoid and 2 Lf of diphtheri a toxoid) DoD hepatitis B vaccine, adult dosage 1 2011 [id number] 43 [facility] ([facility]) complet ed hepatitis B vaccine, adult dosage DoD hepatitis A vaccine, adult dosage 1 2011 [id number] 52 [facility] ([facility]) complet ed hepatitis A vaccine, adult dosage DoD Influenza, seasonal, injectable 1 2010 [id number] Sanofi Pasteur ([facility]) complet ed Influenza , seasonal, injectabl e DoD influenza virus vaccine, split virus (incl. purified surface antigen)-reti red CODE 1 2009 [id number] 15 Unknown (UNK) complet ed influenza virus vaccine, split virus (incl. purified surface antigen)- retired CODE DoD influenza virus vaccine, split virus (incl. purified surface antigen)-reti red CODE 0 2000 [id number] Sanofi Pasteur ([facility]) complet ed influenza virus vaccine, split virus (incl. purified surface antigen)- retired CODE DoD Encounters Combined list of: 1) Encounters from Department of [employer] [facility] facilities going backup to the last 18 months, not all [place] inpatient encounters are included; 2) Encounters from the Department of Defense facilities going backup to 280 months. Location Location Details Encounter Type Encounter Number Reason For Visit Attending Provider ADM Date DC Date Status Disposition Source [facility]) OUTPATIENT [id number] EMELIA BARNHART 09/19 Released w/o Limitations [facility]) Procedures Combined list of: 1) Procedures from Department of Veterans Affairs facilities going back up to thelast 18 months, not all [place] non-surgical procedures are included; 2) All procedures from the Department of Defense facilities. Procedure Procedure Type Code Date Perfomer Comments Sourc e INJECTION, PROMETHAZINE HCL, UP TO 50 MG 09/19/2013 [facility] INFLUENZA VIRUS VACCINE, TRIVALENT (IIV3), SPLIT VIRUS, 0.5 ML DOSAGE, FOR INTRAMUSCULAR USE 04/24/2001 [facility] Social History Combined list of available smoking, tobacco, and other social history from Department of Defense and Veterans Affairs facilities. Social History Type Response Date Comment Sourc e Tobacco smoking status [facility]-TOBACCO NEVER USED 10/04/2022 [facility] This section is an empty social history section. [facility]
--- NOTE | 2024-12-03 06:56 | MR_ITS ---
FINAL REPORT CLINICAL HISTORY: PAIN IN LEFT KNEE old injury 2018 knee instability COMPARISON: None FINDINGS: Multi planar MR imaging was performed of the right knee. The anterior and posterior cruciate ligaments are intact. The quadriceps and patellar tendons are intact. There is extensive magnetic artifact in the medial tibial plateau, probably due to prior tibial plateau fracture repair. There is a linear tear of the posterior horn of the medial meniscus well seen on image 9 of series 4 with flattening of the posterior horn. The lateral meniscus is intact. The medial and lateral retinacula appear intact. There is no evidence of bone marrow edema or osteochondral defect. No evidence of soft tissue inflammatory reaction. IMPRESSION: Magnetic artifact medial tibial plateau. Tear posterior horn medial meniscus. Reviewed, Interpreted and Dictated by Naga Rasheed MD Transcribed by Mary Collazo Authenticated and [facility]
--- OUTSIDE RECORDS SUMMARY | 2024-12-03 06:57 | XMS_ITS | Patient Health Record ---
Author Organization [facility] Address [address] [place] [address] Care Team Providers Care Press Hand Supervisor Name Role Phone Moncho Talley Primary Care Provider Moncho Talley Unavailable Unavailable Jessica Ma Unavailable [phone] Migration, Provider Unavailable Unavailable Allergies Allergen (clinical drug ingredient) Drug/Non Drug Allergy documented on EMR Reaction Allergy Type Onset Date Status CONTRAST DYE (uncoded) Unknown Allergy Active Penicillin Unknown Drug Allergy Active Results Component Value Reference Range Notes CULTURE, THROAT (394) Reviewed date:07/10/2024 01:56:13 PM Interpretation: Performing Lab:[facility] [id number] [employer], [place] [facility] ServicesHqbkPQ[address] Jean Michaud Notes/Report: NON-FASTING CULTURE, THROAT SEE NOTE CULTURE, THROAT Micro Number: [id number] Test Status: Final Specimen Source: Throat Specimen Quality: Adequate Result: No oropharyngeal pathogens recovered. Rapid Strep Reviewed date:07/07/2024 12:44:13 PM Interpretation:Negative Performing Lab: Notes/Report: Negative COMPREHENSIVE METABOLIC PANE L ([id number]) Reviewed date:01/27/2024 01:52:56 PM Interpretation: Performing Lab:[facility] [id number] Mitt[address] [employer], [facility] CenterCwyeXY[address] Jean Michaud Notes/Report: NON-FASTING; NON-FASTING GLUCOSE 70 65-99 mg/dL Fasting reference interval UREA NITROGEN (BUN) 10 7-25 mg/dL CREATININE 0.71 0.50-0.99 mg/dL EGFR 109 > OR = 60 mL/min/1.73m2 BUN/CREATININE RATIO SEE NOTE: 6- (calc) Not Reported: BUN and Creatinine are within reference range. SODIUM 141 135-146 mmol/L POTASSIUM 4.2 3.5-5.3 mmol/L CHLORIDE 105 98-110 mmol/L CARBON DIOXIDE 26 20-32 mmol/L CALCIUM 9.5 8.6-10.2 mg/dL PROTEIN, TOTAL 7.0 6.1-8.1 g/dL ALBUMIN 4.4 3.6-5.1 g/dL GLOBULIN 2.6 1.9-3.7 g/dL (calc) ALBUMIN/GLOBULIN RATIO 1.7 1.0-2.5 (calc) BILIRUBIN, TOTAL 0.6 0.2-1.2 mg/dL ALKALINE PHOSPHATASE 77 31-125 U/L AST 10 10-30 U/L ALT 13 6-29 U/L COMPREHENSIVE METABOLIC PANE L ([id number]) Reviewed date:07/15/2024 03:03:19 PM Interpretation: Performing Lab:[facility], [facility] Servicese1355 [facility]te[facility], [facility] CenterZuaeDV[address] Jean Michaud Notes/Report: NON-FASTING; NON-FASTING; NON-FASTING GLUCOSE 76 65-99 mg/dL Fasting reference interval UREA NITROGEN (BUN) 12 7-25 mg/dL CREATININE 0.68 0.50-0.99 mg/dL EGFR 111 > OR = 60 mL/min/1.73m2 BUN/CREATININE RATIO SEE NOTE: 6- (calc) Not Reported: BUN and Creatinine are within reference range. SODIUM 138 135-146 mmol/L POTASSIUM 4.2 3.5-5.3 mmol/L CHLORIDE 104 98-110 mmol/L CARBON DIOXIDE 25 20-32 mmol/L CALCIUM 9.2 8.6-10.2 mg/dL PROTEIN, TOTAL 6.9 6.1-8.1 g/dL ALBUMIN 4.5 3.6-5.1 g/dL GLOBULIN 2.4 1.9-3.7 g/dL (calc) ALBUMIN/GLOBULIN RATIO 1.9 1.0-2.5 (calc) BILIRUBIN, TOTAL 0.7 0.2-1.2 mg/dL ALKALINE PHOSPHATASE 97 31-125 U/L AST 31 10-30 U/L ALT 53 6-29 U/L CBC (INCLUDES DIFF/PLT) (639 9) Reviewed date:07/15/2024 03:03:20 PM Interpretation: Performing Lab:[facility], [facility] CenterPlqiRK[address] Jean Michaud Notes/Report: NON-FASTING; NON-FASTING; NON-FASTING WHITE BLOOD CELL COUNT 4.9 3.8-10.8 Thousand/ uL RED BLOOD CELL COUNT 4.88 3.80-5.10 Million/uL HEMOGLOBIN 14.5 11.7-15.5 g/dL HEMATOCRIT 43.6 35.0-45.0 % MCV 89.3 80.0-100.0 fL MCH 29.7 27.0-33.0 pg MCHC 33.3 32.0-36.0 g/dL For adults, a slight decrease in the calculated MCHC value (in the range of 30 to 32 g/dL) is most likely not clinically significant; however, it should be interpreted with caution in correlation with other red cell parameters and the patient's clinical condition. RDW 12.5 11.0-15.0 % PLATELET COUNT 230 140-400 Thousand/uL MPV 11.7 7.5-12.5 fL ABSOLUTE NEUTROPHILS 3273 3965-8770 cells/uL ABSOLUTE LYMPHOCYTES 8135 878-1997 cells/uL ABSOLUTE MONOCYTES 270 200-950 cells/uL ABSOLUTE EOSINOPHILS 39 15-500 cells/uL ABSOLUTE BASOPHILS 10 0-200 cells/uL NEUTROPHILS 66.8 LYMPHOCYTES 26.7 MONOCYTES 5.5 EOSINOPHILS 0.8 BASOPHILS 0.2 VITAMIN D,25-OH,TOTAL,IA (17 306) Reviewed date:07/15/2024 03:03:20 PM Interpretation: Performing Lab:[facility] Nlrr[address], [facility] CenterEbbcEG[address] Jean Michaud Notes/Report: NON-FASTING; NON-FASTING; NON-FASTING VITAMIN D,25-OH,TOTAL,IA 26 30-100 ng/mL Vitamin D Status 25-OH Vitamin D: Deficiency: <20 ng/mL Insufficiency: 20 - 29 ng/mL Optimal: > or = 30 ng/mL For 25-OH Vitamin D testing on patients on D2-supplementation and patients for whom quantitation of D2 and D3 fractions is required, the QuestAssureD(TM) 25-OH VIT D, (D2,D3), LC/MS/MS is recommended: order code 81792 (patients >2yrs). See Note 1 Note 1 For additional information, please refer to [email or web address] (This link is being provided for informational/ educational purposes only.) [id number] QUANTITA TION & PHENOTYPE ([id number]) Reviewed date:02/03/2024 09:24:25 PM Interpretation: Performing Lab:E[facility], [facility],[address] [facility], EddyQdtzcxuaxvZB[address] Kandis Felton MD,PhD,VERONICA Notes/Report: NON-FASTING; NON-FASTING [id number]-[id number] QN 91 83-199 mg/dL CVEKR-6-LUCFNOIIHLC (AAT) PHENOTYPE SEE NOTE THIS PATIENT'S TJJHU-8-ZUGTVBPULBQ PHENOTYPE IS PI*MZ. 90% of normal individuals have the MM phenotype, with normal quantitative AAT levels. Many phenotypic patterns have been described, including deficiency states with F, S, Z, or other alleles. As a general estimation, compared to M allele of 100% of normal P-8-Ygujvfiarwx protein, the S allele produces approximately 60% and the Z allele 20%. For example, an MS phenotype would have about 80% of normal F-3-Fsxhvjyeukx protein level, a 50% contribution from the M allele and 30% from the S allele. A ZZ phenotype would have about 20% of normal levels, a 10% contribution from each Z gene. The F allele has normal M-7-Ckaluhcdrsr levels, but the kinetics of elastase inhibition is not as efficient as an M allele product; F alleles should be considered functionally mildly deficient. Other variants are identifiable by phenotypic analysis. These include CM, DP, EM, GM, IS, LM, M1M2, M3M3, MP, MT, XX, MY, and M1N. I, P, T and null alleles are considered deleterious. C, D, E, G, L, M1, M2, M3, X and Y alleles are generally considered normal variants. The MZ-Neves phenotype is a normal variant; care should be taken to avoid confusion with the deficient MZ phenotype. CBC (INCLUDES DIFF/PLT) (639 9) Reviewed date:01/27/2024 01:52:56 PM Interpretation: Performing Lab:CB, [facility] [address]irche[address] [facility] Centerte[facility], Pancho BirchWnnwCK[address] Jean Yvonne Michaud Notes/Report: NON-FASTING; NON-FASTING WHITE BLOOD CELL COUNT 5.4 3.8-10.8 Thousand/ uL RED BLOOD CELL COUNT 4.71 3.80-5.10 Million/uL HEMOGLOBIN 14.2 11.7-15.5 g/dL HEMATOCRIT 43.8 35.0-45.0 % MCV 93.0 80.0-100.0 fL MCH 30.1 27.0-33.0 pg MCHC 32.4 32.0-36.0 g/dL RDW 12.3 11.0-15.0 % PLATELET COUNT 233 140-400 Thousand/uL MPV 10.7 7.5-12.5 fL ABSOLUTE NEUTROPHILS 3640 5729-8874 cells/uL ABSOLUTE LYMPHOCYTES 2294 658-0003 cells/uL ABSOLUTE MONOCYTES 362 200-950 cells/uL ABSOLUTE EOSINOPHILS 49 15-500 cells/uL ABSOLUTE BASOPHILS 22 0-200 cells/uL NEUTROPHILS 67.4 LYMPHOCYTES 24.6 MONOCYTES 6.7 EOSINOPHILS 0.9 BASOPHILS 0.4 Reason For Referral No Information Medications Medication SIG (Take, Route, Frequency, Duration) Notes Start Date End Date Status Meloxicam 7.5 MG 1 tab(s) orally once a day; Duration: 90 days Active Omeprazole 20 MG 1 cap(s) orally once a day; Duration: 90 days Active busPIRone HCl 10 MG 1 tab(s) orally 2 ti mes a day; Duration: 90 days 01/02/2023 Active Amphetamine-Dextroamphet ER 20 MG 1 cap(s) orally once a day (in the morning); Duration: 30 days 08/13/2024 Active Ondansetron 8 MG 1 tab(s) orally 3 ti mes a day; Duration: 5 days 08/25/2024 Active Nurtec 75 mg DISSOLVE 1 TABLET ON TONGUE EVERY OTHER DAY; Duration: 30 Active Immunizations Vaccine Route Administration Date Status Comme nts Flublok IM Intramuscular 04/29/2020 Administered Social History Tobacco Use: Social History Observation Description Date Details (start date - stop date) Never Smoker NA - NA Smoking: Question Answer Notes Are you a: nonsmoker Problems Problem Type SNOMED Code ICD Code Onset Dates Problem Status W/U Status Risk Notes Problem Vitamin D deficiency (53565328) Vitamin D deficiency (E55.9) Active confirmed Problem Gastroesophageal reflux disease without esophagitis (258114920) Gastroesophageal reflux disease without esophagitis (K21.9) Active confirmed Problem Migraine without aura, not refractory (337395348) Migraine without aura and without status migrainosus, not intractable (G43.009) Active confirmed Problem Mood disorder (01921599) Mood disorder (F39) Active confirmed Problem Generalized anxiety disorder (17694272) NITHYA (generalized anxiety disorder) (F41.1) Active confirmed Problem Abnormal vaginal bleeding (369017768) DUB (dysfunctional uterine bleeding) (N93.8) Active confirmed Problem Attention deficit hyperactivity disorder (305078084) Adult ADHD (F90.9) Active confirmed Problem Adult attention deficit hyperactivity disorder (disorder) (268795690) Attention deficit disorder (ADD) in adult (F98.8) Active confirmed Problem 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 Vital Signs Heart Rate 72 /min 11/04/2024 Temperature 97.7 degrees Fahrenheit 11/04/2024 Blood pressure diastolic 78 mm Hg 11/04/2024 Height 68 in 11/04/2024 Blood pressure systolic 116 mm Hg 11/04/2024 Weight 187 lbs 11/04/2024 BMI 28.43 kg/m2 11/04/2024 Encounters Encounter Location Date Provider Diagnosis [facility] [address] [place], [place] [address] 08/29/2024 Provider Migration Attention deficit disorder (ADD) in adult F98.8 [facility] [address] [place] [address] 01/24/2024 Moncho Talley Family history of alpha 1 antitrypsin deficiency Z83.49 [facility] [address] [place] [address] 04/20/2024 Moncho Talley Attention deficit disorder (ADD) in adult F98.8 and Routine medical exam Z00.00 [facility] [address] [place] [address] 07/07/2024 Jessica aM Sore throat J02.9 and Uvulitis K12.2 [facility] [address] [facility] [address] [place] [address] 07/13/2024 Moncho Besson Attention deficit disorder (ADD) in adult F98.8 ; Vitamin D deficiency E55.9 ; Migraine without aura and without status migrainosus, not intractable G43.009 and NITHYA (generalized anxiety disorder) F41.1 [facility] [address] [facility] [address] [place], [place] [address] 11/04/2024 Moncho Besson Attention deficit disorder (ADD) in adult F98.8 and NITHYA (generalized anxiety disorder) F41.1 [facility] [address] [facility] [address] [place], [place] [address] 04/29/2024 Moncho Besson [facility] [address] [place] [address] 08/25/2024 Monchomarino Talley Assessments Encounter Date Diagnosis (ICD Code) Assessment Notes Treatment Notes Treatment Clinical Notes Section Notes 01/24/2024 Family history of alpha 1 antitrypsin deficiency (ICD-10 - Z83.49) Will order liver enzymes, blood counts and alpha-1 antitrypsin levels. If these return positive we will consider entire family screening. 04/20/2024 Routine medical exam (ICD-10 - Z00.00) 04/20/2024 Attention deficit disorder (ADD) in adult (ICD-10 - F98.8) Doing very well with current medication. Occasionally does not use it on a daily basis. No problems with anxiety issues also. Follow-up 3 months. 07/07/2024 Sore throat (ICD-10 - J02.9) Reassurance. Discussed viral etiology with negative strep screen, expected course of illness, and rationale for not prescribing antibiotics. Continue supportive care with PRN antipyretics, salt-water gargles, and cough drops/throat lozenges. Encourage PO hydration. Discussed the signs and symptoms of worsening condition and need for reassessment in clinic or ED. Culture as noted. 07/07/2024 Uvulitis (ICD-10 - K12.2) 07/13/2024 Vitamin D deficiency (ICD-10 - E55.9) Patient with history of vitamin D deficiency. Has been taking supplements [id number]-qsehdl r, will reevaluate today with labs. 07/13/2024 Attention deficit disorder (ADD) in adult (ICD-10 - F98.8) Patient doing well on current stimulant medications at lowest effective dose. No side effects of neurologic or Cardiologic complications. Patient aware of controlled substance status, has been compliant with office procedures, ck reporting is appropriate, and is aware of possible side effects. 08/29/2024 Attention deficit disorder (ADD) in adult (ICD-10 - F98.8) 11/04/2024 NITHYA (generalized anxiety disorder) (ICD-10 - F41.1) Continue as needed medication. Will DC diazepam off her list since she does not currently have this 11/04/2024 Attention deficit disorder (ADD) in adult (ICD-10 - F98.8) Doing well with current medication, follow-up in 3 months for controlled substance regulation adherence. On lowest effective dose, no neurologic side effects. 07/13/2024 Migraine without aura and without status migrainosus, not intractable (ICD-10 - G43.009) Stable on current. Product. No changes in plan 07/13/2024 NITHYA (generalized anxiety disorder) (ICD-10 - F41.1) Anxiety symptoms well-controlled on buspirone. No changes Plan Of Treatment Pending Test Test Name Order Date X ray : Knee, Left 08/14/2023 X ray : Knee, Right 08/14/2023 C-IONIZED CALICIUM 02/04/2020 C-THYROID PROFILE 02/04/2020 M-Partial Thromboplastin Time 08/14/2018 Insurance Providers Payer Name Payer Address Payer Phone Subscriber Number Group Number Insured Name Patient Relationship to Insured Coverage Start Date [facility]age End Date [facility] [address] [place] [address] [phone] [id number] Capri Hickman Self - patient is the insured Medical (General) History Medical History History ICD Code Migraines Anxiety Uterine Mass Surgical History Surgery Date(Month/Year) 2005- Gallbladder removal 2006 left ankle 2019 left knee 2018 Hospitalization History Reason Date(Month/Year) 2005
== END 2024-12-03 23:59 | disposition home or self-care (01) ==
LOC: RAD 06:55
PROVIDERS: PCP Internal Medicine Adolescent Medicine; Visit Provider Orthopaedic Surgery Adult Reconstructive Orthopaedic Surgery
DX: S83.242A Other tear of medial meniscus, current injury, left knee, initial encounter (principal)
CPT/HCPCS: 73721

== ENCOUNTER 2025-04-28 16:55 | Outpatient (CLI) | payer BC, SELFPAY ==
--- OUTSIDE RECORDS SUMMARY | 2024-02-17 04:15 | XMS_ITS ---
Author Organization [facility] Address [address] [place] [address] Care Team Providers Care Head Of Cytogenetics Name Role Phone Moncho Talley Primary Care Provider Moncho Talley Unavailable Unavailable REASON FOR VISIT 3 mo FU Encounters Encounter Location Date Provider Diagnosis [facility] [address] [place] [address] 02/17/2024 Moncho Talley Plan Of Treatment No Information Progress Notes * Lauro DUVALLB: 2 (44 yo F)Acc No.[id number]:02/17/2024 Progress Notes Patient: Capri YBARRA Provider: Lizzeth Talley MD :1980 A ge:43 Y S ex:Female Date:02/17/2024 Address:[id number] Subjective: * Chief Complaints: * 1 . 3 mo FU. * Medical History: Objective: * Vitals: Assessment: Plan: * Treatment: * * Electronic signature of Shiraz Talley MD FAAP on 04/28/2025 at 04:57 PM EST Sign off status: Pending * Provider: Lizzeth Talley MD Date: 0 02/17/2024 Generated for Printi ng/Faxing/eTransmitting on: 1 06/29/2024 04:57 PM EST
--- OUTSIDE RECORDS SUMMARY | 2024-08-29 16:30 | XMS_ITS ---
Author Organization [facility] Address [address] [place] [address] Care Team Providers Care Client Resource Specialist Name Role Phone Moncho Talley Primary Care Provider [phone] Moncho Talley Unavailable Unavailable Migration, Provider Unavailable Unavailable Allergies Allergen (clinical drug ingredient) Drug/Non Drug Allergy documented on EMR Reaction Allergy Type Onset Date Status CONTRAST DYE (uncoded) Unknown Allergy Active Penicillin Unknown Drug Allergy Active REASON FOR VISIT [facility] To [facility] Conversion Encounter Medications Medication SIG (Take, Route, Frequency, Duration) Notes Start Date End Date Status NURTEC ODT 75 MG 1 TAB(S) ORALLY ONCE EVERY OTHER DAY; Duration: 30 DAYS *Please review for potential replacement for e-prescription and drug interaction check* Active Omeprazole 20 MG 1 cap(s) orally once a day; Duration: 90 days Active Ondansetron 8 MG 1 tab(s) orally 3 times a day; Duration: 5 days 08/25/2024 Active Amphetamine-Dextroam phet ER 20 MG 1 cap(s) orally once a day (in the morning); Duration: 30 days 08/13/2024 Active diazePAM 2 MG 1 tab(s) orally every 8 hours; Duration: 3 days 08/13/2024 Active Meloxicam 7.5 MG 1 tab(s) orally once a day; Duration: 90 days Active busPIRone HCl 10 MG 1 tab(s) orally 2 times a day; Duration: 90 days 01/02/2023 Active Encounters Encounter Location Date Provider Diagnosis [facility] [address] [place] [address] 08/29/2024 Provider Migration Attention deficit disorder (ADD) in adult F98.8 Assessments Encounter Date Diagnosis (ICD Code) Assessment Notes Treatment Notes Treatment Clinical Notes Section Notes 08/29/2024 Attention deficit disorder (ADD) in adult (ICD-10 - F98.8) Plan Of Treatment Medication Medication Name Sig Start Date Stop Date Notes NURTEC ODT 75 MG 1 TAB(S) ORALLY ONCE EVERY OTHER DAY; Duration: 30 DAYS *Please review for potential replacement for e-prescription and drug interaction check* Ondansetron 8 MG 1 tab(s) orally 3 times a day; Duration: 5 days 08/25/2024 Amphetamine-Dextroamphe t ER 20 MG 1 cap(s) orally once a day (in the morning); Duration: 30 days 08/13/2024 diazePAM 2 MG 1 tab(s) orally every 8 hours; Duration: 3 days 08/13/2024 Progress Notes * Karie DUVALLJosé MiguelB: 2 (44 yo F)Acc No.[id number]:08/29/2024 Patient: Capri YBARRA Provider: Cathie Jacinto :1980 A ge:44 Y S ex:Female Date:08/29/2024 Address:[address] [place] [address] [place], [id number] Pcp:Moncho Talley Subjective: * Chief Complaints: * 1 . [facility] To [facility] Conversion Encounter. * Medical History: * Medications: T aking busPIRone HCl 10 MG Tablet 1 tab(s) orally 2 times a day , Taking Meloxicam 7.5 MG Tablet 1 tab(s) orally once a day , Taking Omeprazole 20 MG Capsule Delayed Release 1 cap(s) orally once a day * Allergies: P enicillin, CONTRAST DYE. Objective: * Vitals: Assessment: * Assessment: 1. A ttention deficit disorder (ADD) in adult - F98.8 Plan: * Treatment: 2. O thers Start NURTEC ODT TABLET, DISINTEGRATING, 75 MG, 1 TAB(S), ORALLY, ONCE EVERY OTHER DAY, 30 DAYS, 16, Refills 1, Notes to Pharmacist: *Please review for potential replacement for e-prescription and drug interaction check*; S tart diazePAM Tablet, 2 MG, 1 tab(s), orally, every 8 hours, 3 days, 9 Tablet, Refills 1; S tart Ondansetron Tablet Disintegrating, 8 MG, 1 tab(s), orally, 3 times a day, 5 days, 15 Tablet, Refills 1. * * Electronic signature of Prov ider Migration on 04/28/2025 at 04:57 PM EST Sign off status: Pending * Provider: Cathie stevens Migration Date: 0 08/29/2024 Generated for Armando car/Maria D/Cadenceitting on: 1 06/29/2024 04:57 PM EST
--- OUTSIDE RECORDS SUMMARY | 2024-10-12 03:45 | XMS_ITS ---
Author Organization [facility] Address [address] [place] [address] Care Team Providers Care Inhalation Therapist Name Role Phone Moncho Talley Primary Care Provider [phone] Moncho Talley Unavailable Unavailable REASON FOR VISIT 3 month check up Encounters Encounter Location Date Provider Diagnosis [facility] [address] [place] [address] 10/12/2024 Moncho Talley Attention deficit disorder (ADD) in adult F98.8 ; Migraine without aura and without status migrainosus, not intractable G43.009 and NITHYA (generalized anxiety disorder) F41.1 Assessments Encounter Date Diagnosis (ICD Code) Assessment Notes Treatment Notes Treatment Clinical Notes Section Notes 10/12/2024 Attention deficit disorder (ADD) in adult (ICD-10 - F98.8) Sx remain UTD on current dose of adderall, CSA UTD 10/12/2024 Migraine without aura and without status migrainosus, not intractable (ICD-10 - G43.009) -Nurtec controlling sx well, using PRN appx x monthly since last visit 10/12/2024 NITHYA (generalized anxiety disorder) (ICD-10 - F41.1) -On buspar daily, endorsing PRN Valium use x weekly Plan Of Treatment Treatment Notes Assessment Notes Attention deficit disorder (ADD) in adul t Sx remain UTD on current dose of adderall, CSA UTD Migraine without aura and wi thout status migrainosus, not intractable -Nurtec controlling sx well, using PRN appx x monthly since last visit NITHYA (generalized anxiety disorder) -On b uspar daily, endorsing PRN Valium use x weekly Progress Notes * Lauro DUVALLB: 2 (44 yo F)Acc No.[id number]:10/12/2024 Progress Notes Patient: Capri YBARRA Provider: Lizzeth Talley MD :1980 A ge:44 Y S ex:Female Date:10/12/2024 Address:[facility] [place] , [facility], [id number] Subjective: * Chief Complaints: * 1 . 3 month check up. * Medical History: Objective: * Vitals: Assessment: * Assessment: 1. A ttention deficit disorder (ADD) in adult - F98.8 (Primary) 2 . M igraine without aura and without status migrainosus, not intractable - G43.009 3 . G AD (generalized anxiety disorder) - F41.1 Plan: * Treatment: 2. M igraine without aura and without status migrainosus, not intractable Notes: -Nurtec controlling sx well, using PRN appx x monthly since last visit 3. G AD (generalized anxiety disorder) Notes: -On buspar daily, endorsing PRN Valium use x weekly * * Electronic signature of Step marino Talley MD FAAP on 04/28/2025 at 04:57 PM EST Sign off status: Pending * Provider: Lizzeth Talley MD Date: 0 10/12/2024 Generated for Armando car/Maria D/eTransmitting on: 1 06/29/2024 04:57 PM EST
--- NOTE | 2025-04-28 | XR_ITS ---
PROCEDURE INFORMATION: Exam: XR Left Knee Exam date and time: 04/28/2025 4:52 PM Age: 44 years old Clinical indication: Pain; Knee; Left TECHNIQUE: Imaging protocol: Radiologic exam of the left knee. Views: 3 views. Total images: 3 COMPARISON: MR KNEE LT WO CON 02/16/2021 2:36 PM FINDINGS: Bones/joints: Sclerotic changes noted within the medial aspect of the proximal tibia. No evidence of acute fracture or dislocation. Soft tissues: No soft tissue swelling. IMPRESSION: 1. Sclerotic changes noted within the medial aspect of the proximal tibia. 2. No evidence of acute fracture or dislocation.
--- OUTSIDE RECORDS SUMMARY | 2025-04-28 09:19 | XMS_ITS ---
Author Organization [facility] Address [address] [place] [address] Care Team Providers Care Tool Design Checker Name Role Phone Moncho Talley Primary Care Provider Moncho Talley Unavailable Unavailable REASON FOR VISIT wants xray Encounters Encounter Location Date Provider Diagnosis [facility] [address] [place] [address] 04/28/2025 Moncho Talley Knee pain, left M25.562 Assessments Encounter Date Diagnosis (ICD Code) Assessment Notes Treatment Notes Treatment Clinical Notes Section Notes 04/28/2025 Knee pain, left (ICD-10 - M25.562) Plan Of Treatment Pending Test Test Name Order Date X ray : Knee, Left 04/28/2025 Progress Notes * Karie DUVALLJosé MiguelB: 2 (44 yo F)Acc No.[id number]:04/28/2025 Patient: Capri YBARRA :1980 A ge:44 Y S ex:Female [facility] [place] [address] Subjective: * Chief Complaints: * W ants xray * Medical History: * Surgical History: * Hospitalization/Major Diagno stic Procedure: * Medications: Objective: * Vitals: * Physical Examination: Assessment: * Assessment: 1. K nee pain, left - M25.562 Plan: * Treatment: * Procedure Codes: * true * Date: Generated for Armando car/Maria D/Barry on: 06/29/2024 04:58 PM EST
--- OUTSIDE RECORDS SUMMARY | 2025-04-28 16:57 | XMS_ITS | Clinical Summary ---
Author Organization [facility] Address [address] [place] [address] Care Team Providers Care Supervisor Curing Room Name Role Phone Physician, No Primary Care Primary Care Provider Unavailable Allergies Active Allergy Reactions Criticality Noted Date Comments Iodinated Contrast Media 01/15/2020 Penicillins 01/15/2020 Medications No known medications Social History Tobacco Use Types Packs/Day Years Used Date Smoking Tobacco: Never Smokeless Tobacco: Never Alcohol Use Standard Drinks/Week Comments Never 0 (1 standard drink = 0.6 oz pur e alcohol) AUDIT-C Answer Date Recorded Q1: How often do you have a drink containing alc ohol? Never 01/15/2020 Average Number of Drinks Not on file 020 Frequency of Binge Drinking Not on file 12/26 Comments Unknown Sex and Gender Information Value Date Recorded Sex Assigned at Not on file Legal Sex Female 10:57 PM CDT Gender Identity Not on file Sexual Orientation Not on file Last Filed Vital Signs Vital Sign Reading Time Taken Comments Blood Pressure 116/69 01/16/2020 2:45 AM CDT Pulse 75 01/16/2020 2:45 AM CDT Temperature 36.9 C (98.5 F) 01/15/2020 11:07 PM CDT Respiratory Rate 18 01/15/2020 11:07 PM CDT Oxygen Saturation 98% 01/16/2020 2:45 AM CDT Inhaled Oxygen Concentration - - Weight 81.6 kg (180 lb) 01/15/2020 11:07 PM CDT Height 175.3 cm (5' 9 ) 01/15/2020 11:07 PM CDT Body Mass Index 26.58 01/15/2020 11:07 PM CDT Plan of Treatment Not on file Insurance [employer] Care Teams Supervisor Curing Room Relationship Specialty Start Date End Date Physician, No Primary Care PCP - General Internal Medicine 01/15/20 Additional Source Comments IMPORTANT NOTICES REGARDING PATIENT RECORDS DISCLOSED THROUGH CARE EVERYWHERE:1. If the informationreleased to you contains information about AIDs or HIVtest results, that information has been disclosed to you from records whoseconfidentiality is protected by state law ([place]RS 214.625). State law proh ibitsyou from making any further disclosure of such information relating to AIDS orHIV without the specific written consent of the person to whom such informationpertains, or as otherwise permitted by state law. A general authorization forthe release of medical or other information is NOT sufficient for this purpose.2. If the information released to you contains information about alcohol ordrug abuse diagnosis, treatment for such abuse, or referrals for treatment, andif the release was made by a program as defined in 42 CFR 2.11, thisinformation has been disclosed to you from records protected by Federalconfidentiality rules ( TheFederal rules restrict any use of the information to criminally investigate orprosecute any alcohol or drug abuse patient.3. If the information released to you contains information about a person'smental health or chemical dependency, you may not redisclose or otherwisereveal information concerning the mental health or chemical dependency of thatperson, beyond the purpose for which the disclosure was made, without firstobtaining that person's specific written consent to the redisclosure. [id number].[facility]
--- OUTSIDE RECORDS SUMMARY | 2025-04-28 16:58 | XMS_ITS | Patient Health Record ---
Author Organization [facility] Address [address] [place] [address] Care Team Providers Care Emulsion Coater Name Role Phone Moncho Talley Primary Care Provider Moncho Talley Unavailable Unavailable Jessica Ma Unavailable [phone] Migration, Provider Unavailable Unavailable Allergies Allergen (clinical drug ingredient) Drug/Non Drug Allergy documented on EMR Reaction Allergy Type Onset Date Status CONTRAST DYE (uncoded) Unknown Allergy Active Penicillin Unknown Drug Allergy Active Results Component Value Reference Range Notes VITAMIN D,25-OH,TOTAL,IA (17 306) Reviewed date:07/15/2024 03:03:20 PM Interpretation: Performing Lab:[facility], [facility], [facility] CenterIkzoWV[address] Jean Michaud Notes/Report: NON-FASTING; NON-FASTING; NON-FASTING VITAMIN D,25-OH,TOTAL,IA 26 30-100 ng/mL Vitamin D Status 25-OH Vitamin D: Deficiency: <20 ng/mL Insufficiency: 20 - 29 ng/mL Optimal: > or = 30 ng/mL For 25-OH Vitamin D testing on patients on D2-supplementation and patients for whom quantitation of D2 and D3 fractions is required, the QuestAssureD(TM) 25-OH VIT D, (D2,D3), LC/MS/MS is recommended: order code 02096 (patients >2yrs). See Note 1 Note 1 For additional information, please refer to http://education.[email or web address].com/faq/[email or web address] (This link is being provided for informational/ educational purposes only.) CBC (INCLUDES DIFF/PLT) (639 9) Reviewed date:07/15/2024 03:03:20 PM Interpretation: Performing Lab:[email or web address] [id number], [facility] CenterKggrTN[address] Jean Michaud Notes/Report: NON-FASTING; NON-FASTING; NON-FASTING WHITE [...] MPV 11.7 7.5-12.5 fL ABSOLUTE NEUTROPHILS 3273 6204-5143 cells/uL ABSOLUTE LYMPHOCYTES 2776 167-9144 cells/uL ABSOLUTE MONOCYTES 270 200-950 cells/uL ABSOLUTE EOSINOPHILS 39 15-500 cells/uL ABSOLUTE BASOPHILS 10 0-200 cells/uL NEUTROPHILS 66.8 LYMPHOCYTES 26.7 MONOCYTES 5.5 EOSINOPHILS 0.8 BASOPHILS 0.2 COMPREHENSIVE METABOLIC PANE L (87041) Reviewed date:07/15/2024 03:03:19 PM Interpretation: Performing Lab:[email or web address] [id number], [facility] HospitalYusuXZ[address] Jean Michaud Notes/Report: NON-FASTING; NON-FASTING; NON-FASTING GLUCOSE 76 65-99 mg/dL Fasting reference interval UREA NITROGEN (BUN) 12 7-25 mg/dL CREATININE 0.68 0.50-0.99 mg/dL EGFR 111 > OR = 60 mL/min/1.73m2 BUN/CREATININE RATIO SEE NOTE: 6-22 (calc) Not Reported: BUN and Creatinine are [...] 31 10-30 U/L ALT 53 6-29 U/L Rapid Strep Reviewed date:07/07/2024 12:44:13 PM Interpretation:Negative Performing Lab: Notes/Report: Negative CULTURE, THROAT (394) Reviewed date:07/10/2024 01:56:13 PM Interpretation: Performing Lab:[facility], [facility], [facility] CenterTgeuNY[address] Jean Michaud Notes/Report: NON-FASTING CULTURE, THROAT SEE NOTE CULTURE, THROAT Micro Number: [id number] Test Status: Final Specimen Source: Throat Specimen Quality: Adequate Result: No oropharyngeal pathogens recovered. Reason For Referral No Information Medications Medication SIG (Take, Route, Frequency, Duration) Notes Start Date End Date Status Nurtec 75 mg DISSOLVE 1 TABLET ON TONGUE EVERY OTHER DAY; Duration: 30 Active Amphetamine-Dextroamphet ER 20 MG 1 cap(s) orally once a day (in the morning); Duration: 30 days 08/13/2024 Active Ondansetron 8 MG 1 tab(s) orally 3 ti mes a day; Duration: 5 days 08/25/2024 Active busPIRone HCl 10 mg TAKE ONE TABLET BY M OUTH 2 TIMES A DAY; Duration: 30 Active Meloxicam 7.5 mg TAKE ONE TABLET BY M OUTH ONCE A DAY; Duration: 30 Active Immunizations Vaccine Route [...] Status Risk Notes Problem Vitamin D deficiency (96986797) Vitamin D deficiency (E55.9) Active confirmed Problem Gastroesophageal reflux disease without esophagitis (251517698) Gastroesophageal reflux disease without esophagitis (K21.9) Active confirmed Problem Migraine without aura, not refractory (918260919) Migraine without aura and without status migrainosus, not intractable (G43.009) Active confirmed Problem Mood disorder (49397463) Mood disorder (F39) Active confirmed Problem Generalized anxiety disorder (13030677) NITHYA (generalized anxiety disorder) (F41.1) Active confirmed Problem Abnormal vaginal bleeding (723347385) DUB (dysfunctional uterine bleeding) (N93.8) Active confirmed Problem Attention deficit hyperactivity disorder (066242278) Adult ADHD (F90.9) Active confirmed Problem Adult attention deficit hyperactivity disorder (disorder) (693698328) Attention deficit disorder (ADD) in adult (F98.8) Active confirmed Problem Plantar nerve lesion (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) 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 Vital Signs Heart Rate 72 /min 11/04/2024 Temperature 97.7 degrees Fahrenheit 11/04/2024 Blood pressure diastolic 78 mm Hg 11/04/2024 Height 68 in 11/04/2024 Blood pressure systolic 116 mm Hg 11/04/2024 Weight 187 lbs 11/04/2024 BMI 28.43 kg/m2 11/04/2024 Encounters Encounter Location Date Provider Diagnosis [facility] [address] [place] [address] 08/29/2024 Provider Migration Attention deficit disorder (ADD) in adult F98.8 [facility] [address] [facility] [address] [place] [address] 07/07/2024 Jessica Francesca Sore throat J02.9 and Uvulitis K12.2 [facility] [address] [facility] [address] [place] [address] 07/13/2024 Moncho Talley Attention deficit disorder (ADD) in adult F98.8 ; Vitamin D deficiency E55.9 ; Migraine without aura and without status migrainosus, not intractable G43.009 and NITHYA (generalized anxiety disorder) F41.1 [facility] [address] [facility] [address] [place], [place] [address] 11/04/2024 Monchomarino Talley Attention deficit disorder (ADD) in adult F98.8 and NITHYA (generalized anxiety disorder) F41.1 [facility] [address] [place], [place] [address] 04/29/2024 Moncho Besson [facility] [address] [place], [place] [address] 08/25/2024 Moncho Besson [facility] [address] [place], [place] [address] 04/28/2025 Moncho Talley Knee pain, left M25.562 Assessments Encounter Date Diagnosis (ICD Code) Assessment Notes Treatment Notes Treatment Clinical Notes Section Notes 07/07/2024 Sore throat (ICD-10 - J02.9) Reassurance. [...] vitamin D deficiency. Has been taking supplements [id number], will reevaluate today with labs. 07/13/2024 [...] lowest effective dose, no neurologic side effects. 04/28/2025 Knee pain, left (ICD-10 - M25.562) 07/13/2024 Migraine without aura and without status migrainosus, not intractable (ICD-10 - G43.009) Stable on current. Product. No changes in plan 07/13/2024 NITHYA (generalized anxiety disorder) (ICD-10 - F41.1) Anxiety symptoms well-controlled on buspirone. No changes Plan Of Treatment Pending Test Test Name Order Date X ray : Knee, Left 08/14/2023 X ray : Knee, Left 04/28/2025 X ray : Knee, Right 08/14/2023 C-IONIZED CALICIUM 02/04/2020 C-THYROID PROFILE 02/04/2020 M-Partial Thromboplastin Time 08/14/2018 Insurance Providers Payer Name Payer Address Payer Phone Subscriber Number Group Number Insured Name Patient Relationship to Insured Coverage Start Date Coverage End Date [facility] [employer] [address] [place] [address] [id number] Capri Hickman Self - patient is the insured Medical (General) History Medical History History ICD Code Migraines Anxiety Uterine Mass Surgical History Surgery Date(Month/Year) 2004- Gallbladder removal 2006 left ankle 2019 left knee 2019 Hospitalization History Reason Date(Month/Year) 2004
--- OUTSIDE RECORDS SUMMARY | 2025-04-28 16:58 | XMS_ITS | Clinical Summary ---
Author Organization [facility] Address [address] [place] [address] Care Team Providers Care Estimator And Drafter Name Role Phone Moncho Talley MD Primary Care Provider [phone] Social History Tobacco Use Types Packs/Day Years Used Date Smoking Tobacco: Never Assessed Comments Unknown Sex and Gender Information Value Date Recorded Sex Assigned at Not on file Legal Sex Female 5:58 PM EDT Gender Identity Not on file Sexual Orientation Not on file Plan of Treatment Health Maintenance Due Date Last Done Comments [facility]-Depression Screening 1982 [facility]-/Child/Adol SDOH Screenings 1982 [facility]-Varicella Vaccines (1 of 2 - 13+ 2-dose series) 1995 [facility]- SDOH Screenings 2000 [facility]-Adult SDOH Screenings 2000 [facility]-DTaP,Tdap,and Td Vaccines (1 - Tdap) 2001 [facility]-Hepatitis B Vaccines (1 of 3 - 19+ 3-dose series) 2001 [facility]-Pap Smear 2003 HPV Vaccines (1 - 3-dose SCDM series) 2009 [facility]-Cervical Cancer Screening 2012 [facility]-HPV/Cotest 2012 [id number] Vaccine ( - season) 2025 04/14/2021, 09/12/2020, 08/15/2020 [facility]-Influenza Vaccine (#1) 01/25/202502/13, 04/29/2020 [facility]-Zoster Vaccines (1 of 2) 2032 [facility]-HIB Vaccines Aged Out No longer e ligible based on patient's age to complete this topic [facility]-Hepatitis A Vaccines Aged Out No longer eligible based on patient's age to complete this topic [facility]-IPV Vaccines Aged Out No longer e ligible based on patient's age to complete this topic [facility]-Pneumococcal Vaccine: Pediatrics (0 to 5 Years) and At-Risk Patients (6 to 49 Years) Aged Out No longer eligible b ased on patient's age to complete this topic [facility]-Rotavirus Vaccines Aged Out No lo nger eligible based on patient's age to complete this topic Insurance [facility] Care Teams Estimator And Drafter Relationship Specialty Start Date End Date Moncho Talley MD [address] [place] [address] PCP - General Internal Medicine 12/31/24
--- OUTSIDE RECORDS SUMMARY | 2025-04-28 16:58 | XMS_ITS | Clinical Summary ---
Author Organization [facility] Address [address] [place] [address] Care Team Providers Care Pressurizer Name Role Phone Provider, No Known Primary Care Provider Unavail able Allergies Active Allergy Reactions Criticality Noted Date Comments Penicillins 11/14/2015 Medications cyclobenzaprine (FLEXERIL) 10 MG tablet Take 1 tablet by mouth 3 (three) times a day. 07/22/2015 Active PredniSONE (DELTASONE) 10 MG (21) tablet pack Take by mouth. Take as directed 1 X 21 tablet disp pack 07/22/2015 Active diclofenac (VOLTAREN) 75 MG EC tabletIndicatio ns:Lower abdominal pain Take 1 tablet by mouth 2 (Two) Times a Day. 60 tablet 1 09/17/2016 Active topiramate (TOPAMAX) 25 MG tablet Take 25 mg by mouth Daily. Active SUMAtriptan Succinate (IMITREX PO) Take 1 tablet by mouth As Needed. Active HYDROcodone-yasmin taminophen (NORCO) 7.5-325 MG per tablet Take 1 tablet by mouth Every 4 (Four) Hours As Needed for Moderate Pain. 15 tablet 11/05/2017 Active Active Problems No known active problems Social History Tobacco Use Types Packs/Day Years Used Date Smoking Tobacco: Never Smokeless Tobacco: Never Alcohol Use Standard Drinks/Week Comments No 0 (1 standard drink = 0.6 oz pur e alcohol) Abuse Screen Answer Date Recorded Unsafe at Home or Work/School Not on file Feels Threatened by Someone? Not on file 01/2023 Does Anyone Keep You from Co ntacting Others or Doint Things Outside the Home? Not on file 03/04/2023 Physical Sign of Abuse Present Not on file 1 Housing Stability Answer Date Recorded Current Living Arrangements Not on file 01/2023 Potentially Unsafe Housing Conditions Not on sean e 03/04/2023 Family and Community Support Answer Arron e Recorded Help with Day-to-Day Activities Not on file 03/04/2023 Lonely or Isolated Not on file 03/04/2023 Employment Answer Date Recorded Do you want help finding or keeping work or a colby b? Not on file 03/04/2023 Disabilities Answer Date Recorded Concentrating, Remembering, or Making Decisions Difficulty Not on file 03/04/2023 Doing Errands Independently Difficulty Not on fi le 03/04/2023 Education Answer Date Recorded Help with school or training? Not on file Preferred Language Not on file 03/04/2023 Comments Unknown Sex and Gender Information Value Date Recorded Sex Assigned at Not on file Legal Sex Female 12:22 PM EDT Gender Identity Not on file Sexual Orientation Not on file Last Filed Vital Signs Vital Sign Reading Time Taken Comments Blood Pressure 108/62 11/05/2017 1:25 AM CDT Pulse 72 11/05/2017 1:25 AM CDT Temperature 36.7 C (98.1 F) 11/04/2017 10:49 PM CDT Respiratory Rate 16 11/05/2017 1:49 AM CDT Oxygen Saturation 100% 11/05/2017 1:25 AM CDT Inhaled Oxygen Concentration - - Weight 86.2 kg (190 lb) 11/05/2017 12:07 AM CDT Height 175.3 cm (5' 9 ) 11/05/2017 12:07 AM CDT Body Mass Index 28.06 11/05/2017 12:07 AM CDT Plan of Treatment Health Maintenance Due Date Last Done Comments Annual Gynecologic Pelvic an d Breast Exam 1982 TDAP/TD VACCINES (1 - Tdap) 2001 ANNUAL PHYSICAL 06/04/2016 HEPATITIS C SCREENING 06/04/2016 MAMMOGRAM 2022 INFLUENZA VACCINE 12/25/2024 Pneumococcal Vaccine 0-49 Aged Out No longer eligible based on patient's age to complete this topic Insurance [place] [id number] [address] [facility] PPO Care Teams Pressurizer Relationship Specialty Start Date End Date Provider, No Known [facility] [place] [address] PCP - General 11/04/17
== END 2025-04-28 23:59 | disposition home or self-care (01) ==
LOC: RAD 16:56
PROVIDERS: PCP Internal Medicine Adolescent Medicine; Visit Provider Internal Medicine Adolescent Medicine
DX: M89.8X6 Other specified disorders of bone, lower leg (principal); M25.562 Pain in left knee
CPT/HCPCS: 73562